=== PATIENT | male | born 1965 | race Caucasian/White ===

== ENCOUNTER 2020-12-25 10:39 | Observation (INO) | payer OTHER ==
[2020-12-25] MEDS ORDERED: solu-MEDROL 125 MG IV ONE (10:42)
[2020-12-25] MEDS ORDERED: DUONEB 0.5-3 MG/3 ml Neb IH ONE ×3 (10:42→15:00)
[2020-12-25] MEDS ORDERED: BABY ASPIRIN 81 MG CHEW PO ONE (10:43)
[2020-12-25] MEDS ORDERED: Sodium Chloride 3 ML UD NEBULES IH ONE (10:43)
[2020-12-25] MEDS ORDERED: Racepinephrine INH Solution 2.25% IH ONE ×3 (10:43→15:04)
[2020-12-25] MEDS ORDERED: BABY ASPIRIN 81 MG CHEW ONE (10:53)
[2020-12-25] MEDS ORDERED: solu-MEDROL 125 MG ONE ×3 (10:53→21:01)
--- NOTE | 2020-12-25 10:58 | ERPHSYRPT ---
- History of Present Illness Time Seen by Provider: 12/25/20 10:42 Source: patient Exam Limitations: no limitations Patient Subjective Stated Complaint: PT states "About 4 am I started to have difficulty breathing. I go out in the cold and it helps but it is in my throat." Triage Nursing Assessment: PTpresented alert and oriented X 3, skin pwd Pt tachypneic, audible wheezes, voice coarse, uable to cough well. Physician History: 55 years old male with history of hypertension, hyperlipidemia presented in the ER with chief complaint of sudden onset shortness of breath around 4 AM this morning with progressive worsening. Patient reports wheezing and stridorous- like throat closing sensation. Reports it seems to have some ease of breathing with going out in the cold air. Generalized chest tightness and also has m inimal productive cough. Denies any tongue swelling but complaining of scratchiness in the throat. Denies any sick contact. No history of CAD. Timing/Duration: today, hour(s) (6), gradual onset, worse Activities at Onset: rest Severity of Dyspnea-Max: moderate Severity of Dyspnea-Current: moderate Possible Cause: no prior episodes Associated Symptoms: cough, chest pain/discomfort, wheezing, No fever, No lightheadedness Allergies/Adverse Reactions: No Known Drug Allergies Allergy (Verified 12/25/20 10:48) Home Medications: Allopurinol 300 mg PO DAILY 12/25/20 [History] Atorvastatin Calcium [Lipitor] 10 mg PO DAILY 12/25/20 [History] Lisinopril 10 mg [Zestril 10 MG] 10 mg PO DAILY 12/25/20 [History] Hx Tetanus, Diphtheria Vaccination/Date Given: No Hx Influenza Vaccination/Date Given: No Hx Pneumococcal Vaccination/Date Given: No Immunizations Up to Date: Yes Travel Risk - International Travel Have you traveled outside of the country in past 3 weeks: No - Coronavirus Screening Are you exhibiting any of the following symptoms?: Yes Symptoms: Shortness of Breath Close contact with a COVID-19 positive Pt in past 14-21 Days: No - Review of Systems Constitutional: No Symptoms Eyes: No Symptoms Ears, Nose, & Throat: Throat Pain, Throat Swelling Respiratory: Cough, Wheezing Cardiac: No Symptoms Abdominal/Gastrointestinal: No Symptoms Genitourinary Symptoms: No Symptoms Musculoskeletal: No Symptoms Skin: No Symptoms Neurological: No Symptoms Psychological: No Symptoms Endocrine: No Symptoms Hematologic/Lymphatic: No Symptoms - Past Medical History Pertinent Past Medical History: Yes Neurological History: No Pertinent History ENT History: No Pertinent History Cardiac History: High Cholesterol, Hypertension Respiratory History: No Pertinent History Endocrine Medical History: No Pertinent History Musculoskeletal History: Other GI Medical History: No Pertinent History History: Renal Disease Psycho-Social History: No Pertinent History Male Reproductive Disorders: No Pertinent History Other Medical History: gout - Past Surgical History Past Surgical History: Yes Other Surgical History: hernia. left lower leg - Social History Smoking Status: Never smoker Exposure to second hand smoke: No Drug Use: none Patient Lives Alone: No - Nursing Vital Signs Nursing Vital Signs: Initial Vital Signs Temperature 98.3 F 12/25/20 10:40 Pulse Rate 108 H 12/25/20 10:40 Respiratory Rate 28 H 12/25/20 10:40 Blood Pressure 145/120 12/25/20 10:40 O2 Sat by Pulse Oximetry 90 L 12/25/20 10:40 Pain Scale Pain Intensity 0 - Physical Exam General Appearance: no apparent distress Eye Exam: PERRL/EOMI Ears, Nose, Throat Exam: hearing grossly normal, pharyngeal erythema Neck Exam: normal inspection, non-tender, supple, full range of motion Respiratory Exam: diminished breath sounds, accessory muscle use, wheezing, stridor, No chest tenderness Cardiovascular/Chest Exam: normal heart sounds, tachycardia Abdominal/Gastrointestinal Exam: soft, normal bowel sounds Extremity Exam: non-tender, normal range of motion Neurologic Exam: alert, oriented x 3, cooperative Skin Exam: normal color SpO2 Interpretation: normal SpO2: 99 O2 Delivery: Room Air - Course EKG Interpreted by Me: RATE (101), Sinus Tach, NORMAL AXIS, NORMAL INTERVALS, NORMAL QRS Ordered Tests: Active Orders 24 hr Category Date Time Status [employer] Education Director STAT Care 12/25/20 10:43 Active EKG-ER Only STAT Care 12/25/20 10:42 Active IV Insertion STAT Care 12/25/20 10:42 Active NPO (ED) STAT Care 12/25/20 10:42 Active Oxygen-ED Only Nasal Cannula 2 lpm Care 12/25/20 10:42 Active CHEST 1 VIEW (PORTABLE) Stat Exams 12/25/20 10:58 Taken CHEST WITH CONTRAST [CT] Stat Exams 12/25/20 12:01 Taken ARTERIAL BLOOD GASES Stat Lab 12/25/20 10:42 Completed BLOOD CULTURE Stat Lab 12/25/20 11:05 Received CBC W DIFF Stat Lab 12/25/20 10:45 Completed CMP Stat Lab 12/25/20 10:45 Completed D-DIMER QUANTITATIVE Stat Lab 12/25/20 10:45 Completed Lactic Acid Stat Lab 12/25/20 10:42 Completed MAGNESIUM Stat Lab 12/25/20 10:45 Completed NT PRO BNP Stat Lab 12/25/20 10:45 Completed TROPONIN Q3H Lab 12/25/20 10:45 Completed TROPONIN Q3H Lab 12/25/20 13:45 Ordered TROPONIN Q3H Lab 12/25/20 16:45 Ordered TROPONIN Q3H Lab 12/25/20 19:45 Ordered TROPONIN Q3H Lab 12/25/20 22:45 Ordered UA W/RFX UR CULTURE Stat Lab 12/25/20 10:42 Ordered Respiratory Therapy Assessment DAILY RT 12/25/20 11:19 Active Transfer Order Routine Transfer 12/25/20 Ordered Medication Summary Generic Name Dose Route Start Last Admin Trade Name Freq PRN Reason Stop Dose Admin Azithromycin 500 mg in 250 mls @ 250 mls/hr 12/25/20 12:26 Zithromax 500 Mg/ 250 Ml Nacl Premix IV 12/25/20 13:25 STAT STA Discontinued Medications Generic Name Dose Route Start Last Admin Trade Name Freq PRN Reason Stop Dose Admin Albuterol/Ipratropium 3 ml 12/25/20 10:42 12/25/20 10:50 Duoneb 0.5-3 Mg/3 Ml Neb IH 12/25/20 10:43 3 ml STAT ONE Administration Albuterol/Ipratropium Confirm 12/25/20 10:43 Duoneb 0.5-3 Mg/3 Ml Neb Administered 12/25/20 10:44 Dose 3 ml IH .STK-MED ONE Aspirin 324 mg 12/25/20 10:43 12/25/20 11:03 Baby Aspirin 81 Mg Chew PO 12/25/20 10:44 324 mg STAT ONE Administration Aspirin Confirm 12/25/20 10:53 Baby Aspirin 81 Mg Chew Administered 12/25/20 10:54 Dose 324 mg .ROUTE .STK-MED ONE Epinephrine 0.5 ml 12/25/20 10:43 12/25/20 10:43 Racepinephrine Inh Solution 2.25% IH 12/25/20 10:44 0.5 ml STAT ONE Administration Epinephrine Confirm 12/25/20 10:43 Racepinephrine Inh Solution 2.25% Administered 12/25/20 10:44 Dose 0.5 ml IH .STK-MED ONE Ceftriaxone Sodium/Dextrose 1 g in 50 mls @ 100 mls/hr 12/25/20 12:26 12/25/20 12:38 Rocephin 1 Gm-D5w 50 Ml Bag IV 12/25/20 12:55 100 ml/hr STAT STA 100 mls/hr Administration Azithromycin Confirm 12/25/20 12:36 Zithromax 500 Mg/ 250 Ml Nacl Premix Administered 12/25/20 12:37 Dose 500 mg in 250 mls @ ud IV .STK-MED ONE Ceftriaxone Sodium/Dextrose Confirm 12/25/20 12:37 Rocephin 1 Gm-D5w 50 Ml Bag Administered 12/25/20 12:38 Dose 1 g in 50 mls @ ud IV .STK-MED ONE Methylprednisolone Sodium Succinate 125 mg 12/25/20 10:42 12/25/20 11:02 Solu-Medrol 125 Mg IV 12/25/20 10:43 125 mg STAT ONE Administration Methylprednisolone Sodium Succinate Confirm 12/25/20 10:53 Solu-Medrol 125 Mg Administered 12/25/20 10:54 Dose 125 mg .ROUTE .STK-MED ONE Methylprednisolone Sodium Succinate Confirm 12/25/20 11:00 Solu-Medrol 125 Mg Administered 12/25/20 11:01 Dose 125 mg .ROUTE .STK-MED ONE Sodium Chloride Confirm 12/25/20 10:43 Sodium Chloride 3 Ml Ud Nebules Administered 12/25/20 10:44 Dose 3 ml IH .STK-MED ONE Lab/Rad Data: Laboratory Result Diagrams 12/25/20 10:45 12/25/20 10:45 Laboratory Results 12/25/20 12/25/20 12/25/20 Range/Units 10:45 10:45 10:45 WBC (4.0-10.5) K/mm3 RBC (4.1-5.6) M/mm3 Hgb (12.5-18.0) gm/dl Hct (42-50) % MCV (78-100) fl MCH (26-32) pg MCHC (32-36) g/dl RDW (11.5-14.0) % Plt Count (150-450) K/mm3 MPV (7.5-11.0) fl Gran % (36.0-66.0) % Eos # (Auto) (0-0.5) Absolute Lymphs (auto) (1.0-4.6) Absolute Monos (auto) (0.0-1.3) Lymphocytes % (24.0-44.0) % Monocytes % (0.0-12.0) % Eosinophils % (0.00-5.0) % Basophils % (0.0-0.4) % Absolute Granulocytes (1.4-6.9) Basophils # (0-0.4) D-Dimer 1141 H* (215-500) ng/mL Puncture Site pCO2 (35-45) mmHg pO2 (75-100) mmHg Base Excess (-2.0-2.0) O2 Saturation (94-100) g/dF ABG pH (7.35-7.45) ABG HCO3 (22-28) ABG O2 Sat (Measured) (95-100) % Hilario Test Hemoglobin Carboxyhemoglobin (0.0-6.9) % THgb Methemoglobin (1.4-1.5) % Potassium 4.7 (3.5-5.1) Temperature C POC O2 Flow Rate % Sodium 141 (137-145) mmol/L Chloride 105 (98-107) mmol/L Carbon Dioxide 25 (22-30) mmol/L Anion Gap 14.8 (5-15) MEQ/L BUN 27 H (9-20) mg/dL Creatinine 1.52 H (0.66-1.25) mg/dL Estimated GFR 50.9 ML/MIN Glucose 108 H (74-106) mg/dL Lactic Acid (0.4-2.0) Calcium 9.1 (8.4-10.2) mg/dL Magnesium 2.3 (1.6-2.3) mg/dL Total Bilirubin 0.70 (0.2-1.3) mg/dL AST 43 (17-59) U/L ALT 41 (0-50) U/L Alkaline Phosphatase 90 (38-126) U/L Troponin I < 0.012 (0.000-0.034) ng/mL NT-Pro-B Natriuret Pep 107 (0-900) pg/mL Serum Total Protein 8.5 H (6.3-8.2) g/dL Albumin 4.8 (3.5-5.0) g/dL 12/25/20 12/25/20 Range/Units 10:45 10:42 WBC 8.3 (4.0-10.5) K/mm3 RBC 4.78 (4.1-5.6) M/mm3 Hgb 13.5 (12.5-18.0) gm/dl Hct 43.2 (42-50) % MCV 90.4 (78-100) fl MCH 28.2 (26-32) pg MCHC 31.3 L (32-36) g/dl RDW 14.6 H (11.5-14.0) % Plt Count 234 (150-450) K/mm3 MPV 11.0 (7.5-11.0) fl Gran % 64.6 (36.0-66.0) % Eos # (Auto) 0.22 (0-0.5) Absolute Lymphs (auto) 1.80 (1.0-4.6) Absolute Monos (auto) 0.89 (0.0-1.3) Lymphocytes % 21.6 L (24.0-44.0) % Monocytes % 10.7 (0.0-12.0) % Eosinophils % 2.6 (0.00-5.0) % Basophils % 0.5 (0.0-0.4) % Absolute Granulocytes 5.39 (1.4-6.9) Basophils # 0.04 (0-0.4) D-Dimer (215-500) ng/mL Puncture Site LEFT BRACHIAL pCO2 45 (35-45) mmHg pO2 99 (75-100) mmHg Base Excess 1.0 (-2.0-2.0) O2 Saturation 91.5 L (94-100) g/dF ABG pH 7.38 (7.35-7.45) ABG HCO3 26.6 (22-28) ABG O2 Sat (Measured) 98.6 (95-100) % Hilario Test YES Hemoglobin 14.3 Carboxyhemoglobin 6.3 (0.0-6.9) % THgb Methemoglobin 0.9 L (1.4-1.5) % Potassium 4.9 (3.5-5.1) Temperature 37.0 C POC O2 Flow Rate 21 % Sodium (137-145) mmol/L Chloride (98-107) mmol/L Carbon Dioxide (22-30) mmol/L Anion Gap (5-15) MEQ/L BUN (9-20) mg/dL Creatinine (0.66-1.25) mg/dL Estimated GFR ML/MIN Glucose (74-106) mg/dL Lactic Acid 1.5 (0.4-2.0) Calcium (8.4-10.2) mg/dL Magnesium (1.6-2.3) mg/dL Total Bilirubin (0.2-1.3) mg/dL AST (17-59) U/L ALT (0-50) U/L Alkaline Phosphatase (38-126) U/L Troponin I (0.000-0.034) ng/mL NT-Pro-B Natriuret Pep (0-900) pg/mL Serum Total Protein (6.3-8.2) g/dL Albumin (3.5-5.0) g/dL - Progress Progress: improved, re-examined Air Movement: fair Progress Note: 12/25/20 13:05 55 years old is evaluated for this of breath since morning with wheezing and stridorous. He is given racemic epi along with steroid on presentation in the ER and later DuoNeb, on reevaluation feeling better. He is placed on 2 L oxygen initially and later increased it to 3 L and has improved work of breathing on reevaluation. Work-up showed normal white count and lactate. EKG showed sinus tach with no acute ST elevation and negative initial troponin. Patient has elevated D-dimer and CTA chest ruled out pulmonary embolism but has bilateral pneumonitis. Started on Rocephin and Zithromax. Discussed with Dr. Hdz and patient is admitted as I believe patient needs frequent neb treatments, IV steroids and antibiotic along with slow weaning off of oxygen. Plan discussed with patient who understand and agrees with it. Blood Culture(s) Obtained: Yes Antibiotics given: Yes Discussed with Dr.: Arianna Will see patient in: hospital (observation) Counseled pt/family regarding: lab results, diagnosis, rad results - Departure Departure Disposition: Observation Clinical Impression: Bilateral pneumonia Qualifiers: Pneumonia type: due to unspecified organism Lung location: unspecified part of lung Qualified Code(s): J18.9 - Pneumonia, unspecified organism Respiratory failure Qualifiers: Chronicity: acute Respiratory failure complication: hypoxia Qualified Code(s): J96.01 - Acute respiratory failure with hypoxia Condition: Stable Critical Care Time: Yes Critical Care Time(excluding separately billable procedures): Critical 30-74 mins Referrals: JUSTYNA NUNEZ [ACTIVE STAFF] -
[2020-12-25 11:06] LABS: ABG HEMOGLOBIN 14.3; ABG POTASSIUM 4.9 (3.5-5.1); ARTERIAL BLD GAS O2 SATURATION 98.6 % (95-100); ARTERIAL BLOOD GAS FIO2 21 %; ARTERIAL BLOOD GAS PCO2 45 mmHg (35-45); ARTERIAL BLOOD GAS PO2 99 mmHg (75-100); ARTERIAL BLOOD GAS pH 7.38 (7.35-7.45); CARBOXYHEMOGLOBIN 6.3 % THgb (0.0-6.9); HCO3- 26.6 (22-28); HGB O2 SAT 91.5 g/dF (94-100); Lactic Acid 1.5 (0.4-2.0); Methhemoglobin 0.9 % (1.4-1.5)
[2020-12-25 11:08] LABS: ABG SITE LEFT BRACHIAL; ALLEN TEST OK? YES
[2020-12-25 11:28] LABS: Absolute Neutrophil Ct (ANC) 5.39 (1.4-6.9); BASOPHIL % 0.5 % (0.0-0.4); Basophil (Absolute #) 0.04 (0-0.4); Eosinophil % 2.6 % (0.00-5.0); Eosinophil (Absolute #) 0.22 (0-0.5); Hematocrit 43.2 % (42-50); Hemoglobin 13.5 gm/dl (12.5-18.0); Lymphocytes % 21.6 % (24.0-44.0); Mean Cell Volume 90.4 fl (78-100); Mean Corpuscular Hemoglobin 28.2 pg (26-32); Mean Corpuscular Hgb Concent. 31.3 g/dl (32-36); Monocyte (Absolute #) 0.89 (0.0-1.3); Monocytes % 10.7 % (0.0-12.0); Neutrophil % 64.6 % (36.0-66.0); Platelet Count 234 K/mm3 (150-450); Red Blood Count 4.78 M/mm3 (4.1-5.6); Red Cell Distribution Width 14.6 % (11.5-14.0); White Blood Count 8.3 K/mm3 (4.0-10.5)
[2020-12-25 11:39] LABS: ALBUMIN 4.8 g/dL (3.5-5.0); ANION GAP 14.8 MEQ/L (5-15); BILIRUBIN,TOTAL 0.7 mg/dL (0.2-1.3); Calcium 9.1 mg/dL (8.4-10.2); Creatinine 1 1.52 mg/dL (0.66-1.25); EST GLOMERULAR FILTRATION RATE 50.9 ML/MIN; MAGNESIUM 2.3 mg/dL (1.6-2.3); Potassium 4.7 mmol/L (3.5-5.1); Total Protein 8.5 g/dL (6.3-8.2)
[2020-12-25] MEDS ORDERED: ROCEPHIN 1 Gm-D5w 50 ml Bag** 1 G/50 ML IVPB IV STA (12:26)
[2020-12-25] MEDS ORDERED: Zithromax 500 MG/ 250 ML NaCl Premix 500 MG/250 ML IVPB IV STA (12:26)
[2020-12-25] MEDS ORDERED: Zithromax 500 MG/ 250 ML NaCl Premix 500 MG/250 ML IVPB IV ONE (12:36)
[2020-12-25] MEDS ORDERED: ROCEPHIN 1 Gm-D5w 50 ml Bag** 1 G/50 ML IVPB IV ONE (12:37)
[2020-12-25 14:23] LABS: INFLUENZA A NEGATIVE (NEGATIVE); INFLUENZA B NEGATIVE (NEGATIVE); RESPIRATORY SYNCTIAL VIRUS NEGATIVE (Negative)
[2020-12-25] MEDS ORDERED: Zofran 4 MG/2 ML VIAL IV PRN (14:47)
[2020-12-25] MEDS ORDERED: TYLENOL 325 MG PO PRN (14:47)
[2020-12-25] MEDS: DUONEB 0.5-3 MG/3 ml Neb IH SCH ×2 (15:10→19:19)
[2020-12-25] MEDS ORDERED: Racepinephrine INH Solution 2.25% IH PRN (15:42)
[2020-12-25] MEDS: solu-MEDROL 125 MG IV SCH (17:18)
[2020-12-25] MEDS ORDERED: solu-MEDROL 125 MG IV SCH (18:00)
--- NOTE | 2020-12-25 18:47 | XRAY ---
Indication: Cough. Short of breath. Elevated d-dimer. Suspect COVID 19. Multiple contiguous axial images obtained through the chest using 80 cc Isovue-370 contrast and PE protocol. Comparison: None There is suboptimal opacification of the pulmonary arteries and minimal respiration artifact limiting evaluation for pulmonary embolus. No obvious central pulmonary embolus. Heart is borderline enlarged. Aorta is normal in course and caliber. No pathologic mediastinal/hilar lymphadenopathy. Bony thorax demonstrates minimal bilateral dependent atelectasis and right upper lobe calcified granuloma. No suspicious pulmonary mass, infiltrate, or effusion. Bony thorax intact with mild degenerative changes throughout the spine. Limited upper abdomen demonstrates fatty liver. Impression: 1. Pulmonary embolus evaluation limited due to suboptimal opacification and respiration artifact. No obvious central pulmonary embolus. 2. Incidental fatty liver and old granulomatous disease. 3. Remaining CT chest with contrast exam is negative. Comment: Preliminary interpretation was made by [facility]. No critical discrepancy.
--- NOTE | 2020-12-25 18:47 | XRAY ---
Indication: Cough and short of breath. Comparison: None Portable apical lordotic chest underinflated and clear with incidental tiny right apical calcified granuloma. Heart is not enlarged. Bony thorax intact with minimal degenerative changes. Impression: Nonacute underinflated chest with chronic features.
[2020-12-25 19:06] LABS: Appearance CLEAR (CLEAR); Bilirubin NEGATIVE (NEGATIVE); Blood NEGATIVE Ery/ul (0-5); Glucose 150 mg/dL (NEGATIVE); Ketones NEGATIVE (NEGATIVE); Leukocyte Esterase NEGATIVE (NEGATIVE); Nitrite NEGATIVE (NEGATIVE); Protein,Urine Dip NEGATIVE (Negative); Specific Gravity 1.034 (1.005-1.025); Urobilinogen NEGATIVE mg/dL (0-1)
[2020-12-25 19:08] LABS: Bacteria NONE SEEN /HPF (NEGATIVE)
[2020-12-25] MEDS ORDERED: Pepcid 20 MG VIAL IV ONE (21:01)
[2020-12-25] MEDS: Pepcid 20 MG VIAL IV SCH (21:11)
[2020-12-25] MEDS ORDERED: Zestril 10 MG PO ONE (22:00)
[2020-12-25] MEDS ORDERED: Zocor 10MG PO ONE (22:00)
[2020-12-25] MEDS ORDERED: COREG 12.5 MG PO ONE (22:00)
[2020-12-26] MEDS: solu-MEDROL 125 MG IV SCH ×2 (00:13→06:16)
[2020-12-26] MEDS: DUONEB 0.5-3 MG/3 ml Neb IH SCH ×2 (00:28→06:35)
[2020-12-26 04:55] LABS: Absolute Neutrophil Ct (ANC) 8.83 (1.4-6.9); BASOPHIL % 0.1 % (0.0-0.4); Basophil (Absolute #) 0.01 (0-0.4); Eosinophil (Absolute #) 0 (0-0.5); Hematocrit 38.5 % (42-50); Hemoglobin 11.9 gm/dl (12.5-18.0); Lymphocyte (Absolute #) 0.75 (1.0-4.6); Lymphocytes % 7.8 % (24.0-44.0); Mean Cell Volume 91.2 fl (78-100); Mean Corpuscular Hemoglobin 28.2 pg (26-32); Mean Corpuscular Hgb Concent. 30.9 g/dl (32-36); Mean Platelet Volume 10.9 fl (7.5-11.0); Monocyte (Absolute #) 0.06 (0.0-1.3); Monocytes % 0.6 % (0.0-12.0); Neutrophil % 91.5 % (36.0-66.0); Platelet Count 226 K/mm3 (150-450); Red Blood Count 4.22 M/mm3 (4.1-5.6); Red Cell Distribution Width 14.4 % (11.5-14.0); White Blood Count 9.7 K/mm3 (4.0-10.5)
[2020-12-26 04:56] LABS: ALBUMIN 4.2 g/dL (3.5-5.0); ANION GAP 13.1 MEQ/L (5-15); BILIRUBIN,TOTAL 0.4 mg/dL (0.2-1.3); Calcium 8.7 mg/dL (8.4-10.2); Creatinine 1 1.64 mg/dL (0.66-1.25); EST GLOMERULAR FILTRATION RATE 46.6 ML/MIN; Potassium 4.9 mmol/L (3.5-5.1); Total Protein 7.3 g/dL (6.3-8.2)
[2020-12-26] MEDS ORDERED: Racepinephrine INH Solution 2.25% IH PRN (07:15)
[2020-12-26 07:21] VITALS: BP 150/82; PULSE 96; O2SAT 94
[2020-12-26] MEDS: Pepcid 20 MG VIAL IV SCH (09:58)
[2020-12-26] MEDS ORDERED: ROCEPHIN 1 Gm-D5w 50 ml Bag** 1 G/50 ML IVPB IV SCH (10:00)
[2020-12-26] MEDS ORDERED: ZYLOPRIM 300 MG PO SCH (10:00)
[2020-12-26] MEDS ORDERED: COREG 12.5 MG PO SCH (10:00)
[2020-12-26] MEDS ORDERED: NON-FORMULARY ITEM (Carvedilol [Coreg] 25 MG) PO SCH (10:00)
[2020-12-26] MEDS ORDERED: Zithromax 500 MG/ 250 ML NaCl Premix 500 MG/250 ML IVPB IV SCH (10:00)
--- NOTE | 2020-12-26 11:29 | SSS ---
DISCHARGE DIAGNOSIS: CROUP. 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 The patient reports that it did get better when he went out in the cool night air but he decided to come to the emergency room where he was found to have stridor with respirations. He was given racemic epinephrine and did improve. He was admitted for observation and further management. PAST MEDICAL/SURGICAL HISTORY: Otherwise significant for hypertension and hyperlipidemia. He apparently sees Dr. Davison in [place] for his care and Dr. Mayco Manzanares for gout problem. The patient's past medical history is otherwise unremarkable. HOME MEDICATIONS: Allopurinol 300 mg a day, atorvastatin 10 mg a day, lisinopril 10 mg a day. ALLERGIES: NKDA. PHYSICAL EXAMINATION: His vital signs on admission showed his temperature to be 98.3F, pulse 108, respiratory rate 28 and blood pressure 145/120. O2 saturation was 90% initially. HEENT: Currently normocephalic, atraumatic. Pupils equal round reactive to light. Extraocular movements are intact. Oropharynx is somewhat dry. He is wearing oxygen per nasal cannula presently. NECK: Supple without lymphadenopathy, thyromegaly or JVD. CHEST: Essentially clear to auscultation. HEART: Regular rate and rhythm, slightly tachycardic. ABDOMEN: Soft. No palpable masses. EXTREMITIES: Without cyanosis, clubbing or edema. NEUROLOGIC: The patient is alert and oriented x3. No focal deficits were noted. LAB DATA AND TESTS: The patient did have laboratory studies in the emergency room that revealed his troponin to be less than 0.012. His glucose 108, BUN 27, creatinine 1.52. Liver enzymes are normal. Electrolytes were normal. ProBNP is normal. He had second troponin less than 0.012. His white count was 8.3, hemoglobin 13.5, PLT count 234,000. His pH 7.38, pCO2 of 45, pO2 of 99. His lactic acid was normal at 1.5. The D-dimer was elevated at 1141. His COVID test, influenza A/B and RSV were all negative. His UA was essentially normal other than slight glucose. He had CT of the chest due to elevated D-dimer which revealed limited evaluation suboptimal opacification, respiration artifact but no central pulmonary embolus was seen, incidental fatty liver, remaining CT of the chest was essentially negative. HOSPITAL COURSE: The patient was given Rocephin and Zithromax in the emergency room, racemic epinephrine, DuoNeb and Solu-Medrol. The patient was feeling much better by the next morning and felt to be ready for discharge home again. He was given prescription for Prednisone 10 mg tablet to take 30 mg for 3 days, 20 mg for 3 days and 10 mg for 3 days. He was given a prescription for Zithromax to finish out that treatment. He was also given an appointment to see us in the office for follow up this coming Saturday. He has been instructed to come back to the hospital if he had any further problems with shortness of breath issues that cannot be controlled with his medications.
[2020-12-26] MEDS ORDERED: Zestril 10 MG PO SCH (22:00)
[2020-12-26] MEDS ORDERED: Zocor 10MG PO SCH (22:00)
[2020-12-26] MEDS ORDERED: NON-FORMULARY ITEM (Atorvastatin Calcium [Lipitor] 10 MG) PO SCH (22:00)
== END 2020-12-26 10:28 | disposition home or self-care (01) ==
LOC: ED 10:39 → MED SURG 14:45
PROVIDERS: ADMIT Family Medicine; ATTEND Family Medicine
DX: J05.0 Acute obstructive laryngitis [croup] (principal); R06.02 Shortness of breath; I10 Essential (primary) hypertension; E78.5 Hyperlipidemia, unspecified; Z79.899 Other long term (current) drug therapy; E78.00 Pure hypercholesterolemia, unspecified
CPT/HCPCS: 0241U; 36000; 36415; 36600; 71045; 71260; 80053; 81001; 82375; 82803; 83605; 83735; 83880; 84484; 85025; 85379; 87040; 93005; 93041; 94640; 94762; 96365; 96374; 99291; G0378; 94760; 99285; J0456; J0696; J2930; A9270-GY

== ENCOUNTER 2021-05-28 16:04 | Observation (INO) | payer OTHER ==
[2021-05-28] MEDS ORDERED: Zofran 4 MG/2 ML VIAL IV ONE (16:32)
[2021-05-28] MEDS ORDERED: Sodium Chloride 0.9% 1000 ML 1,000 ML IV STA (16:32)
[2021-05-28] MEDS ORDERED: Zofran 4 MG/2 ML VIAL ONE (16:34)
[2021-05-28] MEDS ORDERED: Sodium Chloride 0.9% 1000 ML 1,000 ML ONE (16:34)
--- NOTE | 2021-05-28 16:40 | ERPHSYRPT ---
- History of Present Illness Time Seen by Provider: 05/28/21 16:05 Source: patient Exam Limitations: no limitations Patient Subjective Stated Complaint: Patient states he has been having covis s/s x 1 week, body aches, chills, shortness of breath, cough, vomiting and diarrhea. Triage Nursing Assessment: Patient t ED with complaints of covid symptoms x 1 week. States he has hx of renal failure and thinks kidneys are also shutting down. Skin pink warm and dry, 95% room air. slight wheezes and coarse breath sounds heard throughout. Physician History: 55 years old male with a history of hypertension, hyperlipidemia presented in the ER with 1 week history of flulike symptoms. Patient report initially started with minimal productive cough with chest tightness with generalized body aches chills, fatigue and tiredness. The last couple of days he is having multiple episodes of loose watery stool and feels weak and dehydrated. Worried about having GENE as patient does have's history of renal failure in the past wi th similar symptoms. Does have positive sick contact with COVID-19 and did not receive vaccination. Timing/Duration: week(s) (1), gradual onset, worse Cough Quality/Degree: moderate, productive cough, sputum Possible Cause: illness exposure Modifying Factors: Worsens With: coughing Associated Symptoms: chills, chest pain/soreness, cough, headache, lightheadedness, muscle aches, nasal congestion, No fever Allergies/Adverse Reactions: No Known Drug Allergies Allergy (Verified 05/28/21 16:20) Home Medications: Allopurinol 300 mg PO DAILY 12/25/20 [History] Atorvastatin Calcium [Lipitor] 10 mg PO HS 12/25/20 [History] Lisinopril 10 mg [Zestril 10 MG] 10 mg PO HS 12/25/20 [History] Hx Tetanus, Diphtheria Vaccination/Date Given: Yes Hx Influenza Vaccination/Date Given: No Hx Pneumococcal Vaccination/Date Given: No Immunizations Up to Date: Yes Travel Risk - International Travel Have you traveled outside of the country in past 3 weeks: No - Coronavirus Screening Are you exhibiting any of the following symptoms?: Yes Symptoms: Fever, Cough: New Onset, Shortness of Breath, Vomiting/Diarrhea, Loss of Taste or Smell, Headaches/Body Aches/Fatigue Close contact with a COVID-19 positive Pt in past 14-21 Days: Yes - Vaccine Status Have you recieved a Covid-19 vaccination: No - Review of Systems Constitutional: Chills, Fatigue, Weakness Eyes: No Symptoms Ears, Nose, & Throat: Nose Congestion Respiratory: Cough, Dyspnea, Wheezing Abdominal/Gastrointestinal: Diarrhea, No Abdominal Pain Genitourinary Symptoms: No Symptoms Musculoskeletal: Myalgias Skin: No Symptoms Neurological: Headache Psychological: No Symptoms Endocrine: No Symptoms Hematologic/Lymphatic: No Symptoms Immunological/Allergic: No Symptoms - Past Medical History Pertinent Past Medical History: Yes Neurological History: No Pertinent History ENT History: No Pertinent History Cardiac History: High Cholesterol, Hypertension Respiratory History: No Pertinent History Endocrine Medical History: No Pertinent History Musculoskeletal History: Other GI Medical History: No Pertinent History History: Renal Disease Psycho-Social History: No Pertinent History Male Reproductive Disorders: No Pertinent History Other Medical History: gout - Past Surgical History Past Surgical History: Yes Other Surgical History: hernia. left lower leg - Social History Smoking Status: Never smoker Exposure to second hand smoke: No Drug Use: none Patient Lives Alone: No - Nursing Vital Signs Nursing Vital Signs: Initial Vital Signs Temperature 98.9 F 05/28/21 16:10 Pulse Rate 105 H 05/28/21 16:10 Respiratory Rate 16 05/28/21 16:10 Blood Pressure 180/113 05/28/21 16:10 O2 Sat by Pulse Oximetry 97 05/28/21 16:10 Pain Scale Pain Intensity 0 - Physical Exam General Appearance: no apparent distress, alert Eye Exam: PERRL/EOMI, eyes nml inspection Ears, Nose, Throat Exam: normal ENT inspection, pharyngeal erythema Neck Exam: normal inspection, non-tender, supple, full range of motion Respiratory Exam: normal breath sounds, lungs clear Cardiovascular Exam: regular rate/rhythm, normal heart sounds Gastrointestinal/Abdomen Exam: soft, normal bowel sounds, No tenderness Back Exam: normal inspection, normal range of motion Extremity Exam: normal inspection, normal range of motion Neurologic Exam: alert, oriented x 3, cooperative, scalper operator II-XII nml as tested Skin Exam: normal color SpO2 Interpretation: normal SpO2: 97 O2 Delivery: Room Air - Course EKG Interpreted by Me: RATE (100), Sinus Rhythm, NORMAL AXIS, NORMAL INTERVALS, Non-specific ST Changes Ordered Tests: Active Orders 24 hr Category Date Time Status IV Insertion STAT Care 05/28/21 16:32 Active NPO (ED) STAT Care 05/28/21 16:32 Active CHEST 1 VIEW (PORTABLE) Stat Exams 05/28/21 16:59 Taken BLOOD CULTURE Stat Lab 05/28/21 17:15 Received BMP Stat Lab 05/28/21 16:36 Completed CBC W DIFF Stat Lab 05/28/21 16:36 Completed LIPASE Stat Lab 05/28/21 16:36 Completed Lactic Acid Stat Lab 05/28/21 16:32 Completed MAG [MAGNESIUM] Stat Lab 05/28/21 16:36 Completed UA W/RFX UR CULTURE Stat Lab 05/28/21 17:41 Ordered Medication Summary Discontinued Medications Generic Name Dose Route Start Last Admin Trade Name Freq PRN Reason Stop Dose Admin Sodium Chloride 1,000 mls @ 999 mls/hr 05/28/21 16:32 05/28/21 17:37 Sodium Chloride 0.9% 1000 Ml IV 05/28/21 17:32 Infused .Q1H1M STA Infusion Sodium Chloride Confirm 05/28/21 16:34 Sodium Chloride 0.9% 1000 Ml Administered 05/28/21 16:35 Dose 1,000 mls @ ud .ROUTE .STK-MED ONE Ondansetron HCl 4 mg 05/28/21 16:32 05/28/21 16:37 Zofran 4 Mg/2 Ml Vial IV 05/28/21 16:33 4 mg STAT ONE Administration Ondansetron HCl Confirm 05/28/21 16:34 Zofran 4 Mg/2 Ml Vial Administered 05/28/21 16:35 Dose 4 mg .ROUTE .STK-MED ONE Lab/Rad Data: Laboratory Result Diagrams 05/28/21 16:36 05/28/21 16:36 Laboratory Results 05/28/21 05/28/21 05/28/21 Range/Units 16:36 16:36 16:36 WBC (4.0-10.5) K/mm3 RBC (4.1-5.6) M/mm3 Hgb (12.5-18.0) gm/dl Hct (42-50) % MCV (78-100) fl MCH (26-32) pg MCHC (32-36) g/dl RDW (11.5-14.0) % Plt Count (150-450) K/mm3 MPV (7.5-11.0) fl Gran % (36.0-66.0) % Eos # (Auto) (0-0.5) Absolute Lymphs (auto) (1.0-4.6) Absolute Monos (auto) (0.0-1.3) Lymphocytes % (24.0-44.0) % Monocytes % (0.0-12.0) % Eosinophils % (0.00-5.0) % Basophils % (0.0-0.4) % Absolute Granulocytes (1.4-6.9) Basophils # (0-0.4) Sodium 135 L (137-145) mmol/L Potassium 4.9 (3.5-5.1) mmol/L Chloride 99 (98-107) mmol/L Carbon Dioxide 22 (22-30) mmol/L Anion Gap 18.6 H (5-15) MEQ/L BUN 28 H (9-20) mg/dL Creatinine 1.90 H (0.66-1.25) mg/dL Estimated GFR 39.3 ML/MIN Glucose 107 H (74-106) mg/dL Lactic Acid (0.4-2.0) Calcium 8.7 (8.4-10.2) mg/dL Magnesium 1.9 (1.6-2.3) mg/dL Lipase 96 (23-300) U/L SARS-CoV-2 (PCR) POSITIVE A (NEGATIVE) 05/28/21 05/28/21 Range/Units 16:36 16:32 WBC 5.7 (4.0-10.5) K/mm3 RBC 5.34 (4.1-5.6) M/mm3 Hgb 14.8 (12.5-18.0) gm/dl Hct 46.2 (42-50) % MCV 86.5 (78-100) fl MCH 27.7 (26-32) pg MCHC 32.0 (32-36) g/dl RDW 14.7 H (11.5-14.0) % Plt Count 161 (150-450) K/mm3 MPV 11.2 H (7.5-11.0) fl Gran % 73.4 H (36.0-66.0) % Eos # (Auto) 0.01 (0-0.5) Absolute Lymphs (auto) 0.95 L (1.0-4.6) Absolute Monos (auto) 0.55 (0.0-1.3) Lymphocytes % 16.6 L (24.0-44.0) % Monocytes % 9.6 (0.0-12.0) % Eosinophils % 0.2 (0.00-5.0) % Basophils % 0.2 (0.0-0.4) % Absolute Granulocytes 4.19 (1.4-6.9) Basophils # 0.01 (0-0.4) Sodium (137-145) mmol/L Potassium (3.5-5.1) mmol/L Chloride (98-107) mmol/L Carbon Dioxide (22-30) mmol/L Anion Gap (5-15) MEQ/L BUN (9-20) mg/dL Creatinine (0.66-1.25) mg/dL Estimated GFR ML/MIN Glucose (74-106) mg/dL Lactic Acid 1.3 (0.4-2.0) Calcium (8.4-10.2) mg/dL Magnesium (1.6-2.3) mg/dL Lipase (23-300) U/L SARS-CoV-2 (PCR) (NEGATIVE) - Progress Progress: improved Air Movement: fair Progress Note: 05/28/21 18:17 55 years old is evaluated for flulike symptoms with worsening diarrhea. Given fluid bolus, work-up showed normal white count, acute on chronic renal failure with a baseline creatinine around 1.4 and today 1.9 and elevated gap of 18. Chest x-ray negative for any acute pneumonic infiltrative process reviewed by me, official report is pending. Patient Covid 19 is positive. With his worsening diarrhea which started 2 days ago and his Covid symptoms going on for 10 days I believe patient would benefit with IV hydration and monitoring, discussed with and patient is accepted for admission Antibiotics given: No Discussed with : Jaun Will see patient in: hospital (observation) Counseled pt/family regarding: lab results, diagnosis, rad results - Departure Departure Disposition: Observation Clinical Impression: Dehydration, COVID-19 Renal failure Qualifiers: Renal failure chronicity: acute Acute renal failure type: unspecified Qualified Code(s): N17.9 - Acute kidney failure, unspecified Condition: Stable Critical Care Time: No Referrals: CANDE BARBOSA [Primary Care Provider] -
[2021-05-28 16:43] LABS: Absolute Neutrophil Ct (ANC) 4.19 (1.4-6.9); BASOPHIL % 0.2 % (0.0-0.4); Basophil (Absolute #) 0.01 (0-0.4); Eosinophil % 0.2 % (0.00-5.0); Eosinophil (Absolute #) 0.01 (0-0.5); Hematocrit 46.2 % (42-50); Hemoglobin 14.8 gm/dl (12.5-18.0); Lymphocyte (Absolute #) 0.95 (1.0-4.6); Lymphocytes % 16.6 % (24.0-44.0); Mean Cell Volume 86.5 fl (78-100); Mean Corpuscular Hemoglobin 27.7 pg (26-32); Mean Platelet Volume 11.2 fl (7.5-11.0); Monocyte (Absolute #) 0.55 (0.0-1.3); Monocytes % 9.6 % (0.0-12.0); Neutrophil % 73.4 % (36.0-66.0); Platelet Count 161 K/mm3 (150-450); Red Blood Count 5.34 M/mm3 (4.1-5.6); Red Cell Distribution Width 14.7 % (11.5-14.0); White Blood Count 5.7 K/mm3 (4.0-10.5)
[2021-05-28 16:50] LABS: ANION GAP 18.6 MEQ/L (5-15); Calcium 8.7 mg/dL (8.4-10.2); Creatinine 1 1.9 mg/dL (0.66-1.25); EST GLOMERULAR FILTRATION RATE 39.3 ML/MIN; Potassium 4.9 mmol/L (3.5-5.1)
[2021-05-28 18:14] LABS: Appearance SLIGHTLY CLOUDY (CLEAR); Bilirubin NEGATIVE (NEGATIVE); Blood SMALL Ery/ul (0-5); Glucose NEGATIVE (NEGATIVE); Ketones TRACE (NEGATIVE); Leukocyte Esterase NEGATIVE (NEGATIVE); Nitrite NEGATIVE (NEGATIVE); Protein,Urine Dip 100 (Negative); Specific Gravity 1.014 (1.005-1.025); Urobilinogen NEGATIVE mg/dL (0-1)
[2021-05-28 18:35] LABS: Bacteria NONE SEEN /HPF (NEGATIVE)
[2021-05-28] MEDS ORDERED: MORPHINE SULFATE 4 MG INJ IV PRN (19:59)
[2021-05-28] MEDS ORDERED: MORPHINE SULFATE 2 MG INJ IV PRN (19:59)
[2021-05-28] MEDS: Sodium Chloride 0.9% 1000 ML 1,000 ML IV SCH (21:28)
[2021-05-28] MEDS: Pepcid 20 MG VIAL IV SCH (21:29)
[2021-05-29] MEDS: TYLENOL 325 MG PO PRN ×3 (03:02→21:17)
[2021-05-29] MEDS ORDERED: Zofran 4 MG/2 ML VIAL IV PRN (03:15)
[2021-05-29 05:41] LABS: Absolute Neutrophil Ct (ANC) 3.36 (1.4-6.9); BASOPHIL % 0.2 % (0.0-0.4); Basophil (Absolute #) 0.01 (0-0.4); Eosinophil (Absolute #) 0 (0-0.5); Hematocrit 42.6 % (42-50); Hemoglobin 13.5 gm/dl (12.5-18.0); Lymphocyte (Absolute #) 0.85 (1.0-4.6); Lymphocytes % 17.9 % (24.0-44.0); Mean Cell Volume 86.9 fl (78-100); Mean Corpuscular Hemoglobin 27.6 pg (26-32); Mean Corpuscular Hgb Concent. 31.7 g/dl (32-36); Mean Platelet Volume 11.3 fl (7.5-11.0); Monocyte (Absolute #) 0.54 (0.0-1.3); Monocytes % 11.3 % (0.0-12.0); Neutrophil % 70.6 % (36.0-66.0); Platelet Count 138 K/mm3 (150-450); Red Cell Distribution Width 14.6 % (11.5-14.0); White Blood Count 4.8 K/mm3 (4.0-10.5)
[2021-05-29 06:26] LABS: ALBUMIN 3.7 g/dL (3.5-5.0); ANION GAP 14.6 MEQ/L (5-15); BILIRUBIN,TOTAL 0.7 mg/dL (0.2-1.3); Calcium 8.1 mg/dL (8.4-10.2); Creatinine 1 1.54 mg/dL (0.66-1.25); EST GLOMERULAR FILTRATION RATE 50.1 ML/MIN; Potassium 4.3 mmol/L (3.5-5.1); Total Protein 7.1 g/dL (6.3-8.2)
[2021-05-29] MEDS: Sodium Chloride 0.9% 1000 ML 1,000 ML IV SCH ×3 (06:27→21:17)
--- NOTE | 2021-05-29 08:58 | XRAY ---
Indication: Fever, cough, and short of breath. Suspect Covid 19. Comparison: December 25, 2020. Portable apical lordotic chest remains clear again with incidental tiny calcified granulomas. Heart not enlarged. Bony thorax intact again with mild degenerative changes. No new/acute findings.
[2021-05-29] MEDS: Zestril 10 MG PO SCH (10:00)
[2021-05-29] MEDS: Pepcid 20 MG VIAL IV SCH ×2 (10:00→21:17)
[2021-05-29] MEDS: ENOXAPARIN SODIUM SQ SCH (10:00)
[2021-05-29] MEDS ORDERED: LIPITOR 40MG PO SCH (10:00)
[2021-05-29] MEDS: ZYLOPRIM 300 MG PO SCH (10:01)
[2021-05-29] MEDS: Zocor 10MG PO SCH (10:01)
--- NOTE | 2021-05-29 13:07 | PCM.HP ---
History of Present Illness - Chief Complaint Chief Complaint: c/o flu like symptoms for 2-3 days History of Present Illness: is a 55 year old male.with a history of hypertension, hyperlipidemia presented in the ER with 1 week history of flulike symptoms. Patient report initially started with minimal productive cough with chest tightness with generalized body aches chills, fatigue and tiredness. The last couple of days he is having multiple episodes of loose watery stool and feels weak and dehydrated. Worried about having GENE as patient does have's history of renal failure in the past with similar symptoms. Does have positive sick contact with COVID-19 and did not receive vaccination. Timing/Duration: week(s) (1), gradual onset, worse Cough Quality/Degree: moderate, productive cough, sputum Possible Cause: illness exposure Modifying Factors: Worsens With: coughing Associated Symptoms: chills, chest pain/soreness, cough, headache, lightheadedne ss, muscle aches, nasal congestion, No fever - Review of Systems Constitutional: Weakness, No Fever, No Chills Eyes: No Symptoms Ears, Nose, & Throat: No Symptoms Respiratory: Cough, Short Of Breath, Wheezing Cardiac: No Chest Pain, No Edema, No Syncope Abdominal/Gastrointestinal: Abdominal Pain, Nausea, Vomiting, Diarrhea Genitourinary Symptoms: No Dysuria Musculoskeletal: No Back Pain, No Neck Pain Skin: No Rash Neurological: No Dizziness, No Focal Weakness, No Sensory Changes Psychological: No Symptoms Endocrine: No Symptoms Hematologic/Lymphatic: No Symptoms Immunological/Allergic: No Symptoms Medications & Allergies Home Medications: Home Medication List Allopurinol 300 mg PO DAILY 12/25/20 [History Confirmed 05/28/21] Atorvastatin Calcium [Lipitor] 10 mg PO DAILY 12/25/20 [History Confirmed 05/28/21] Lisinopril 10 mg [Zestril 10 MG] 10 mg PO DAILY 12/25/20 [History Confirmed 05/28/21] Allergies/Adverse Reactions: Allergies Allergy/AdvReac Type Severity Reaction Status Date / Time No Known Drug Allergies Allergy Verified 05/28/21 16:20 - Past Medical History Past Medical History: Yes Neurological History: No Pertinent History ENT History: No Pertinent History Cardiac History: High Cholesterol, Hypertension Respiratory History: No Pertinent History Endocrine Medical History: No Pertinent History Musculoskelatal History: Other GI Medical History: No Pertinent History History: Renal Disease Pyscho-Social History: No Pertinent History Male Reproductive Disorders: No Pertinent History Comment: gout - Past Surgical History Past Surgical History: Yes Neuro Surgical History: No Pertinent History Cardiac History: No Pertinent History Respiratory Surgery: No Pertinent History GI Surgical History: No Pertinent History Genitourinary Surgical Hx: Other Musculskeletal Surgical Hx: No Pertinent History Male Surgical History: No Pertinent History Other Surgical History: hernia. left lower leg - Social History Smoking Status: Never smoker Exposure to second hand smoke: No Alcohol: None Drug Use: none - Physical Exam Vital Signs: Vital Signs - 24 hr Temp Pulse Resp BP Pulse Ox 05/29/21 12:04 97.5 F 82 18 150/88 96 05/29/21 12:00 24 05/29/21 10:00 20 05/29/21 09:53 86 18 95 05/29/21 08:00 18 05/29/21 07:30 98.6 F 89 18 136/90 93 L 05/29/21 07:18 93 L 05/29/21 06:00 97 F 87 20 157/84 96 05/29/21 03:49 20 05/29/21 03:48 98.2 F 87 20 95 05/29/21 02:00 99.3 F 98 H 18 167/97 95 05/28/21 23:44 18 05/28/21 23:35 99.3 F 101 H 18 150/77 95 05/28/21 22:00 20 05/28/21 20:40 97.0 F 95 H 20 159/92 95 05/28/21 19:51 93 H 20 95 05/28/21 19:00 96 H 20 166/107 95 05/28/21 18:18 97 05/28/21 18:00 100 H 20 164/103 95 05/28/21 17:00 96 H 20 159/105 96 05/28/21 16:10 98.9 F 105 H 29 H 180/113 95 General Appearance: no apparent distress, alert Neurologic Exam: alert, oriented x 3, cooperative, normal mood/affect, nml cerebellar function, nml station & gait, sensation nml, No motor deficits Eye Exam: PERRL/EOMI, eyes nml inspection Ears, Nose, Throat Exam: normal ENT inspection, TMs normal, pharynx normal, moist mucous membranes Neck Exam: normal inspection, non-tender, supple, full range of motion Respiratory Exam: normal breath sounds, lungs clear, No respiratory distress Cardiovascular Exam: regular rate/rhythm, normal heart sounds, normal peripheral pulses Gastrointestinal/Abdomen Exam: soft, normal bowel sounds, No tenderness, No mass Back Exam: normal inspection, normal range of motion, No CVA tenderness, No vertebral tenderness Extremity Exam: normal inspection, normal range of motion, pelvis stable Skin Exam: normal color, warm, dry, No rash Lymphatic Exam: No adenopathy Results - Labs Lab/Micro Results: Lab Results-Last 24 Hours 05/28/21 05/28/21 05/28/21 Range/Units 16:32 16:36 16:36 WBC 5.7 (4.0-10.5) K/mm3 RBC 5.34 (4.1-5.6) M/mm3 Hgb 14.8 (12.5-18.0) gm/dl Hct 46.2 (42-50) % MCV 86.5 (78-100) fl MCH 27.7 (26-32) pg MCHC 32.0 (32-36) g/dl RDW 14.7 H (11.5-14.0) % Plt Count 161 (150-450) K/mm3 MPV 11.2 H (7.5-11.0) fl Gran % 73.4 H (36.0-66.0) % Eos # (Auto) 0.01 (0-0.5) Absolute Lymphs (auto) 0.95 L (1.0-4.6) Absolute Monos (auto) 0.55 (0.0-1.3) Lymphocytes % 16.6 L (24.0-44.0) % Monocytes % 9.6 (0.0-12.0) % Eosinophils % 0.2 (0.00-5.0) % Basophils % 0.2 (0.0-0.4) % Absolute Granulocytes 4.19 (1.4-6.9) Basophils # 0.01 (0-0.4) Sodium 135 L (137-145) mmol/L Potassium 4.9 (3.5-5.1) mmol/L Chloride 99 (98-107) mmol/L Carbon Dioxide 22 (22-30) mmol/L Anion Gap 18.6 H (5-15) MEQ/L BUN 28 H (9-20) mg/dL Creatinine 1.90 H (0.66-1.25) mg/dL Estimated GFR 39.3 ML/MIN Glucose 107 H (74-106) mg/dL Lactic Acid 1.3 (0.4-2.0) Calcium 8.7 (8.4-10.2) mg/dL Magnesium (1.6-2.3) mg/dL Total Bilirubin (0.2-1.3) mg/dL AST (17-59) U/L ALT (0-50) U/L Alkaline Phosphatase (38-126) U/L Serum Total Protein (6.3-8.2) g/dL Albumin (3.5-5.0) g/dL Lipase 96 (23-300) U/L Urine Color (YELLOW) Urine Appearance (CLEAR) Urine pH (5-6) Ur Specific [place] (1.005-1.025) Urine Protein (Negative) Urine Ketones (NEGATIVE) Urine Blood (0-5) Gio/ul Urine Nitrite (NEGATIVE) Urine Bilirubin (NEGATIVE) Urine Urobilinogen (0-1) mg/dL Ur Leukocyte Esterase (NEGATIVE) Urine WBC (Auto) (0-5) /HPF Urine RBC (Auto) (0-2) /HPF U Epithel Cells (Auto) (FEW) /HPF Urine Bacteria (Auto) (NEGATIVE) /HPF Urine Culture Reflexed (NO) Urine Glucose (NEGATIVE) mg/dL SARS-CoV-2 (PCR) (NEGATIVE) 05/28/21 05/28/21 05/28/21 Range/Units 16:36 16:36 17:41 WBC (4.0-10.5) K/mm3 RBC (4.1-5.6) M/mm3 Hgb (12.5-18.0) gm/dl Hct (42-50) % MCV (78-100) fl MCH (26-32) pg MCHC (32-36) g/dl RDW (11.5-14.0) % Plt Count (150-450) K/mm3 MPV (7.5-11.0) fl Gran % (36.0-66.0) % Eos # (Auto) (0-0.5) Absolute Lymphs (auto) (1.0-4.6) Absolute Monos (auto) (0.0-1.3) Lymphocytes % (24.0-44.0) % Monocytes % (0.0-12.0) % Eosinophils % (0.00-5.0) % Basophils % (0.0-0.4) % Absolute Granulocytes (1.4-6.9) Basophils # (0-0.4) Sodium (137-145) mmol/L Potassium (3.5-5.1) mmol/L Chloride (98-107) mmol/L Carbon Dioxide (22-30) mmol/L Anion Gap (5-15) MEQ/L BUN (9-20) mg/dL Creatinine (0.66-1.25) mg/dL Estimated GFR ML/MIN Glucose (74-106) mg/dL Lactic Acid (0.4-2.0) Calcium (8.4-10.2) mg/dL Magnesium 1.9 (1.6-2.3) mg/dL Total Bilirubin (0.2-1.3) mg/dL AST (17-59) U/L ALT (0-50) U/L Alkaline Phosphatase (38-126) U/L Serum Total Protein (6.3-8.2) g/dL Albumin (3.5-5.0) g/dL Lipase (23-300) U/L Urine Color YELLOW (YELLOW) Urine Appearance SLIGHTLY CLOUDY (CLEAR) Urine pH 5.0 (5-6) Ur Specific [place] 1.014 (1.005-1.025) Urine Protein 100 (Negative) Urine Ketones TRACE (NEGATIVE) Urine Blood SMALL (0-5) Gio/ul Urine Nitrite NEGATIVE (NEGATIVE) Urine Bilirubin NEGATIVE (NEGATIVE) Urine Urobilinogen NEGATIVE (0-1) mg/dL Ur Leukocyte Esterase NEGATIVE (NEGATIVE) Urine WBC (Auto) NONE (0-5) /HPF Urine RBC (Auto) NONE (0-2) /HPF U Epithel Cells (Auto) NONE (FEW) /HPF Urine Bacteria (Auto) NONE SEEN (NEGATIVE) /HPF Urine Culture Reflexed YES (NO) Urine Glucose NEGATIVE (NEGATIVE) mg/dL SARS-CoV-2 (PCR) POSITIVE A (NEGATIVE) 05/29/21 05/29/21 Range/Units 05:00 05:00 WBC 4.8 (4.0-10.5) K/mm3 RBC 4.90 (4.1-5.6) M/mm3 Hgb 13.5 (12.5-18.0) gm/dl Hct 42.6 (42-50) % MCV 86.9 (78-100) fl MCH 27.6 (26-32) pg MCHC 31.7 L (32-36) g/dl RDW 14.6 H (11.5-14.0) % Plt Count 138 L (150-450) K/mm3 MPV 11.3 H (7.5-11.0) fl Gran % 70.6 H (36.0-66.0) % Eos # (Auto) 0 (0-0.5) Absolute Lymphs (auto) 0.85 L (1.0-4.6) Absolute Monos (auto) 0.54 (0.0-1.3) Lymphocytes % 17.9 L (24.0-44.0) % Monocytes % 11.3 (0.0-12.0) % Eosinophils % 0.0 (0.00-5.0) % Basophils % 0.2 (0.0-0.4) % Absolute Granulocytes 3.36 (1.4-6.9) Basophils # 0.01 (0-0.4) Sodium 135 L (137-145) mmol/L Potassium 4.3 (3.5-5.1) mmol/L Chloride 105 (98-107) mmol/L Carbon Dioxide 20 L (22-30) mmol/L Anion Gap 14.6 (5-15) MEQ/L BUN 25 H (9-20) mg/dL Creatinine 1.54 H (0.66-1.25) mg/dL Estimated GFR 50.1 ML/MIN Glucose 105 (74-106) mg/dL Lactic Acid (0.4-2.0) Calcium 8.1 L (8.4-10.2) mg/dL Magnesium (1.6-2.3) mg/dL Total Bilirubin 0.70 (0.2-1.3) mg/dL AST 37 (17-59) U/L ALT 15 (0-50) U/L Alkaline Phosphatase 76 (38-126) U/L Serum Total Protein 7.1 (6.3-8.2) g/dL Albumin 3.7 (3.5-5.0) g/dL Lipase (23-300) U/L Urine Color (YELLOW) Urine Appearance (CLEAR) Urine pH (5-6) Ur Specific [place] (1.005-1.025) Urine Protein (Negative) Urine Ketones (NEGATIVE) Urine Blood (0-5) Gio/ul Urine Nitrite (NEGATIVE) Urine Bilirubin (NEGATIVE) Urine Urobilinogen (0-1) mg/dL Ur Leukocyte Esterase (NEGATIVE) Urine WBC (Auto) (0-5) /HPF Urine RBC (Auto) (0-2) /HPF U Epithel Cells (Auto) (FEW) /HPF Urine Bacteria (Auto) (NEGATIVE) /HPF Urine Culture Reflexed (NO) Urine Glucose (NEGATIVE) mg/dL SARS-CoV-2 (PCR) (NEGATIVE) Microbiology 05/28/21 17:41 Urine Culture - Preliminary Urine, Void NO GROWTH TO DATE - Radiology Impressions Radiology Exams & Impressions: Radiology Procedures Category Date Time Status CHEST 1 VIEW (PORTABLE) Stat Exams 05/28/21 16:59 Completed - Other Procedures and Tests Respiratory Therapy 05/28/21 22:00 Oxygen NASAL CANNULA 2 lpm Assessment/Plan (1) Dehydration Current Visit: Yes Status: Acute Assessment & Plan: Chief Complaint Diagnosis covid/acute renal failure Allergies Allergy/AdvReac Type Severity Reaction Status Date / Time No Known Drug Allergies Allergy Verified 05/28/21 16:20 Vital Signs (Last 24 hours) Temp Pulse Resp BP Pulse Ox 05/29/21 12:04 97.5 F 82 18 150/88 96 05/29/21 12:00 24 05/29/21 10:00 20 05/29/21 09:53 86 18 95 05/29/21 08:00 18 05/29/21 07:30 98.6 F 89 18 136/90 93 L 05/29/21 07:18 93 L 05/29/21 06:00 97 F 87 20 157/84 96 05/29/21 03:49 20 05/29/21 03:48 98.2 F 87 20 95 05/29/21 02:00 99.3 F 98 H 18 167/97 95 05/28/21 23:44 18 05/28/21 23:35 99.3 F 101 H 18 150/77 95 05/28/21 22:00 20 05/28/21 20:40 97.0 F 95 H 20 159/92 95 05/28/21 19:51 93 H 20 95 05/28/21 19:00 96 H 20 166/107 95 05/28/21 18:18 97 05/28/21 18:00 100 H 20 164/103 95 05/28/21 17:00 96 H 20 159/105 96 05/28/21 16:10 98.9 F 105 H 29 H 180/113 95 Current Medications Generic Name Dose Route Start Last Admin Trade Name Freq PRN Reason Stop Dose Admin Acetaminophen 650 mg 05/28/21 19:59 05/29/21 03:02 Tylenol 325 Mg PO 06/27/21 19:58 650 mg Q4H PRN PRN Administration PAIN AND/OR FEVER Allopurinol 300 mg 05/29/21 10:00 05/29/21 10:01 Zyloprim 300 Mg PO 06/28/21 09:59 300 mg DAILY MICHAEL Administration Enoxaparin Sodium 40 mg 05/29/21 10:00 05/29/21 10:00 Enoxaparin Sodium SQ 06/28/21 09:59 40 mg DAILY MICHAEL Administration Famotidine 20 mg 05/28/21 22:00 05/29/21 10:00 Pepcid 20 Mg Vial IV 06/27/21 21:59 20 mg Q12HT MICHAEL Administration Sodium Chloride 1,000 mls @ 125 mls/hr 05/28/21 19:59 05/29/21 06:27 Sodium Chloride 0.9% 1000 Ml IV 06/27/21 19:58 125 mls/hr .Q8H MICHAEL Administration Lisinopril 10 mg 05/29/21 10:00 05/29/21 10:00 Zestril 10 Mg PO 06/28/21 09:59 10 mg DAILY MICHAEL Administration Morphine Sulfate 2 mg 05/28/21 19:59 05/29/21 03:03 Morphine Sulfate 2 Mg Inj IV 06/02/21 19:58 2 mg Q4H PRN PRN Administration PAIN Morphine Sulfate 4 mg 05/28/21 19:59 Morphine Sulfate 4 Mg Inj IV 06/02/21 19:58 Q4H PRN PRN PAIN Ondansetron HCl 4 mg 05/29/21 03:15 05/29/21 03:17 Zofran 4 Mg/2 Ml Vial IV 06/28/21 03:14 4 mg Q4H PRN PRN Administration NAUSEA/VOMITING Simvastatin 10 mg 05/29/21 10:00 05/29/21 10:01 Zocor 10mg PO 06/28/21 09:59 10 mg DAILY MICHAEL Administration Discontinued Medications Generic Name Dose Route Start Last Admin Trade Name Freq PRN Reason Stop Dose Admin Sodium Chloride 1,000 mls @ 999 mls/hr 05/28/21 16:32 05/28/21 17:37 Sodium Chloride 0.9% 1000 Ml IV 05/28/21 17:32 Infused .Q1H1M STA Infusion Sodium Chloride Confirm 05/28/21 16:34 Sodium Chloride 0.9% 1000 Ml Administered 05/28/21 16:35 Dose 1,000 mls @ ud .ROUTE .STK-MED ONE Ondansetron HCl 4 mg 05/28/21 16:32 05/28/21 16:37 Zofran 4 Mg/2 Ml Vial IV 05/28/21 16:33 4 mg STAT ONE Administration Ondansetron HCl Confirm 05/28/21 16:34 Zofran 4 Mg/2 Ml Vial Administered 05/28/21 16:35 Dose 4 mg .ROUTE .STK-MED ONE Intake & Output (Last 24 hours) 05/27/21 05/28/21 05/29/21 05/30/21 11:59 11:59 11:59 11:59 Intake Total 2320 Balance 2320 Weight 82.5 kg Microbiology Results (Last 24 hours) 05/28/21 17:41 Urine, Void Urine Culture - Preliminary NO GROWTH TO DATE 05/28/21 17:15 Blood Blood Culture Gram Stain - Pending 05/28/21 17:15 Blood Blood Culture - Pending 05/28/21 16:36 Blood Blood Culture Gram Stain - Pending 05/28/21 16:36 Blood Blood Culture - Pending Laboratory Results (Last 24 hours) 05/29/21 05/29/21 05/28/21 05:00 05:00 17:41 WBC 4.8 RBC 4.90 Hgb 13.5 Hct 42.6 MCV 86.9 MCH 27.6 MCHC 31.7 L RDW 14.6 H Plt Count 138 L MPV 11.3 H Gran % 70.6 H Eos # (Auto) 0 Absolute Lymphs (auto) 0.85 L Absolute Monos (auto) 0.54 Lymphocytes % 17.9 L Monocytes % 11.3 Eosinophils % 0.0 Basophils % 0.2 Absolute Granulocytes 3.36 Basophils # 0.01 Sodium 135 L Potassium 4.3 Chloride 105 Carbon Dioxide 20 L Anion Gap 14.6 BUN 25 H Creatinine 1.54 H Estimated GFR 50.1 Glucose 105 Lactic Acid Calcium 8.1 L Magnesium Total Bilirubin 0.70 AST 37 ALT 15 Alkaline Phosphatase 76 Serum Total Protein 7.1 Albumin 3.7 Lipase Urine Color YELLOW Urine Appearance SLIGHTLY CLOUDY Urine pH 5.0 Ur Specific [place] 1.014 Urine Protein 100 Urine Ketones TRACE Urine Blood SMALL Urine Nitrite NEGATIVE Urine Bilirubin NEGATIVE Urine Urobilinogen NEGATIVE Ur Leukocyte Esterase NEGATIVE Urine WBC (Auto) NONE Urine RBC (Auto) NONE U Epithel Cells (Auto) NONE Urine Bacteria (Auto) NONE SEEN Urine Culture Reflexed YES Urine Glucose NEGATIVE SARS-CoV-2 (PCR) 05/28/21 05/28/21 05/28/21 16:36 16:36 16:36 WBC RBC Hgb Hct MCV MCH MCHC RDW Plt Count MPV Gran % Eos # (Auto) Absolute Lymphs (auto) Absolute Monos (auto) Lymphocytes % Monocytes % Eosinophils % Basophils % Absolute Granulocytes Basophils # Sodium 135 L Potassium 4.9 Chloride 99 Carbon Dioxide 22 Anion Gap 18.6 H BUN 28 H Creatinine 1.90 H Estimated GFR 39.3 Glucose 107 H Lactic Acid Calcium 8.7 Magnesium 1.9 Total Bilirubin AST ALT Alkaline Phosphatase Serum Total Protein Albumin Lipase 96 Urine Color Urine Appearance Urine pH Ur Specific [place] Urine Protein Urine Ketones Urine Blood Urine Nitrite Urine Bilirubin Urine Urobilinogen Ur Leukocyte Esterase Urine WBC (Auto) Urine RBC (Auto) U Epithel Cells (Auto) Urine Bacteria (Auto) Urine Culture Reflexed Urine Glucose SARS-CoV-2 (PCR) POSITIVE A 05/28/21 05/28/21 16:36 16:32 WBC 5.7 RBC 5.34 Hgb 14.8 Hct 46.2 MCV 86.5 MCH 27.7 MCHC 32.0 RDW 14.7 H Plt Count 161 MPV 11.2 H Gran % 73.4 H Eos # (Auto) 0.01 Absolute Lymphs (auto) 0.95 L Absolute Monos (auto) 0.55 Lymphocytes % 16.6 L Monocytes % 9.6 Eosinophils % 0.2 Basophils % 0.2 Absolute Granulocytes 4.19 Basophils # 0.01 Sodium Potassium Chloride Carbon Dioxide Anion Gap BUN Creatinine Estimated GFR Glucose Lactic Acid 1.3 Calcium Magnesium Total Bilirubin AST ALT Alkaline Phosphatase Serum Total Protein Albumin Lipase Urine Color Urine Appearance Urine pH Ur Specific [place] Urine Protein Urine Ketones Urine Blood Urine Nitrite Urine Bilirubin Urine Urobilinogen Ur Leukocyte Esterase Urine WBC (Auto) Urine RBC (Auto) U Epithel Cells (Auto) Urine Bacteria (Auto) Urine Culture Reflexed Urine Glucose SARS-CoV-2 (PCR) Orders (Last 24 hours) Category Date Time Status Bedrest with BRP/BSC ROUTINE Activity 05/28/21 19:59 Active Up With Assistance ROUTINE Activity 05/28/21 19:59 Active Code Status Order ROUTINE Care 05/28/21 19:59 Active Fall Protocol Q1H Care 05/28/21 19:59 Active IV Care Q6H Care 05/28/21 19:59 Active IV Insertion STAT Care 05/28/21 16:32 Completed NPO (ED) STAT Care 05/28/21 16:[address] in Observation ROUTINE Care 05/28/21 19:59 Active Taurus Joao, Apply ROUTINE Care 05/28/21 19:59 Active Weight,Daily 0600 Care 05/28/21 19:59 Active CHEST 1 VIEW (PORTABLE) Stat Exams 05/28/21 16:59 Completed BLOOD CULTURE Stat Lab 05/28/21 17:15 Received BMP Stat Lab 05/28/21 16:36 Completed CBC W DIFF AM.LAB Lab 05/29/21 05:00 Completed CBC W DIFF AM.LAB Lab 05/30/21 04:00 Ordered CBC W DIFF Stat Lab 05/28/21 16:36 Completed CMP AM.LAB Lab 05/29/21 05:00 Completed CMP AM.LAB Lab 05/30/21 04:00 Ordered CULTURE,URINE Stat Lab 05/28/21 17:41 Results LIPASE Stat Lab 05/28/21 16:36 Completed Lactic Acid Stat Lab 05/28/21 16:32 Completed MAG [MAGNESIUM] Stat Lab 05/28/21 16:36 Completed SARS-CoV-2 Xpert Express Stat Lab 05/28/21 16:36 Completed UA W/RFX UR CULTURE Stat Lab 05/28/21 17:41 Completed Acetaminophen 325 mg [Tylenol 325 mg] Med 05/28/21 19:59 Active 650 mg PO Q4H PRN PRN Allopurinol 300 mg [Zyloprim 300 mg] Med 05/29/21 10:00 Active 300 mg PO DAILY Enoxaparin Sodium [Enoxaparin Sodium] Med 05/29/21 10:00 Active 40 mg SQ DAILY Famotidine 20 mg Vial [Pepcid 20 MG VIAL] Med 05/28/21 22:00 Active 20 mg IV Q12HT Lisinopril 10 mg [Zestril 10 MG] Med 05/29/21 10:00 Active 10 mg PO DAILY Morphine Sulfate 2 mg Inj Med 05/28/21 19:59 Active 2 mg IV Q4H PRN PRN Morphine Sulfate 4 mg Inj Med 05/28/21 19:59 Active 4 mg IV Q4H PRN PRN NaCl 0.9% 1000 ml [Sodium Chloride 0.9% 1000 ML] 1,000 Med 05/28/21 16:34 Discontinued ml .ROUTE UD NaCl 0.9% 1000 ml [Sodium Chloride 0.9% 1000 ML] 1,000 Med 05/28/21 19:59 Active ml IV 125 mls/hr NaCl 0.9% 1000 ml [Sodium Chloride 0.9% 1000 ML] 1,000 Med 05/28/21 16:32 Discontinued ml IV 999 mls/hr Ondansetron HCl 4 mg/2 ml [Zofran 4 MG/2 ML VIAL] Med 05/28/21 16:34 Discontinued 4 mg .ROUTE .STK-MED ONE Ondansetron HCl 4 mg/2 ml [Zofran 4 MG/2 ML VIAL] Med 05/29/21 03:15 Active 4 mg IV Q4H PRN PRN Ondansetron HCl 4 mg/2 ml [Zofran 4 MG/2 ML VIAL] Med 05/28/21 16:32 Discontinued 4 mg IV STAT ONE Simvastatin 10 mg [Zocor 10MG] Med 05/29/21 10:00 Active 10 mg PO DAILY Oxygen NASAL CANNULA 2 lpm RT 05/28/21 22:00 Active Pulse Oximetry .continuos RT 05/28/21 22:00 Active Respiratory Therapy Assessment DAILY RT 05/28/21 22:01 Completed Patient Care Notes (Last 24 hours) 05/29/21 11:02 Nursing Note by Pretty Teresa Attempted to dc O2 and sat dropped to 88%. O2 back on 2L NC and sats back up to 92-95% Initialized on 05/29/21 11:02 - END OF NOTE 05/29/21 09:40 Nursing Note by Pretty Teresa Patient was on 2L NC this am. O2 sat 92-98%. Took O2 off and rechecked sats - 88-89%. Back on 2L NC Sat 90-92% Initialized on 05/29/21 09:40 - END OF NOTE Code(s): E86.0 - DEHYDRATION (2) COVID-19 Current Visit: Yes Status: Acute Code(s): U07.1 - COVID-19
[2021-05-30] MEDS: Sodium Chloride 0.9% 1000 ML 1,000 ML IV SCH ×3 (03:32→23:14)
[2021-05-30] MEDS: TYLENOL 325 MG PO PRN (03:32)
[2021-05-30 05:27] LABS: Absolute Neutrophil Ct (ANC) 3.36 (1.4-6.9); Basophil (Absolute #) 0 (0-0.4); Eosinophil % 0.7 % (0.00-5.0); Eosinophil (Absolute #) 0.03 (0-0.5); Hematocrit 39.1 % (42-50); Hemoglobin 12.2 gm/dl (12.5-18.0); Lymphocyte (Absolute #) 0.53 (1.0-4.6); Lymphocytes % 12.2 % (24.0-44.0); Mean Cell Volume 88.3 fl (78-100); Mean Corpuscular Hemoglobin 27.5 pg (26-32); Mean Corpuscular Hgb Concent. 31.2 g/dl (32-36); Mean Platelet Volume 10.7 fl (7.5-11.0); Monocyte (Absolute #) 0.42 (0.0-1.3); Monocytes % 9.7 % (0.0-12.0); Neutrophil % 77.4 % (36.0-66.0); Platelet Count 118 K/mm3 (150-450); Red Blood Count 4.43 M/mm3 (4.1-5.6); Red Cell Distribution Width 14.6 % (11.5-14.0); White Blood Count 4.3 K/mm3 (4.0-10.5)
[2021-05-30 06:02] LABS: ALBUMIN 3.4 g/dL (3.5-5.0); ANION GAP 13.2 MEQ/L (5-15); BILIRUBIN,TOTAL 0.5 mg/dL (0.2-1.3); Calcium 7.9 mg/dL (8.4-10.2); Creatinine 1 1.35 mg/dL (0.66-1.25); EST GLOMERULAR FILTRATION RATE 58.3 ML/MIN; Potassium 4.1 mmol/L (3.5-5.1); Total Protein 6.5 g/dL (6.3-8.2)
[2021-05-30 06:39] LABS: Slide Review 1 YES
[2021-05-30] MEDS: Zestril 10 MG PO SCH (10:21)
[2021-05-30] MEDS: Zocor 10MG PO SCH (10:21)
[2021-05-30] MEDS: ENOXAPARIN SODIUM SQ SCH (10:22)
[2021-05-30] MEDS: Pepcid 20 MG VIAL IV SCH ×2 (10:22→21:39)
[2021-05-30] MEDS: ZYLOPRIM 300 MG PO SCH (10:22)
[2021-05-30] MEDS ORDERED: ROCEPHIN 1 Gm-D5w 50 ml Bag** 1 G/50 ML IVPB IV SCH (13:00)
[2021-05-30] MEDS ORDERED: Coreg 3.125 MG PO SCH (13:30)
[2021-05-30] MEDS: solu-MEDROL 40 MG IV SCH ×2 (13:30→21:38)
[2021-05-30] MEDS ORDERED: VENTOLIN COMMON CANISTER IH PRN (14:45)
[2021-05-30] MEDS ORDERED: REMDESIVIR 200 MG in Sodium Chloride 0.9% 250 ML 250 ML IV ONE (15:00)
--- NOTE | 2021-05-30 18:39 | PCM.NOTE ---
Date and Time: 05/30/211835 Subjective Assessment: still shortness of breath - Review of Systems Constitutional: No Fever, No Chills Eyes: No Symptoms Ears, Nose, & Throat: No Symptoms Respiratory: Cough, Orthopnea, Short Of Breath, Wheezing Cardiac: No Chest Pain, No Edema, No Syncope Abdominal/Gastrointestinal: No Abdominal Pain, No Nausea, No Vomiting, No Diarrhea Genitourinary Symptoms: No Dysuria Musculoskeletal: No Back Pain, No Neck Pain Skin: No Rash Neurological: No Dizziness, No Focal Weakness, No Sensory Changes Psychological: No Symptoms Endocrine: No Symptoms Hematologic/Lymphatic: No Symptoms Immunological/Allergic: No Symptoms Objective Exam General Appearance: moderate distress, alert Neurologic Exam: alert, oriented x 3, cooperative, sensation nml, No motor deficits Skin Exam: normal color, warm, dry Eye Exam: PERRL, EOMI, eyes nml inspection Ears, Nose, Throat Exam: normal ENT inspection, pharynx normal, moist mucous membranes Neck Exam: normal inspection, non-tender, supple, full range of motion Respiratory Exam: normal breath sounds, crackles/rales, rhonchi, wheezing, No respiratory distress Cardiovascular Exam: regular rate/rhythm, normal heart sounds Gastrointestinal/Abdomen Exam: soft, No tenderness, No mass Extremity Exam: normal inspection, normal range of motion Back Exam: normal inspection, normal range of motion, No CVA tenderness, No vertebral tenderness Male Genitalia Exam: deferred Rectal Exam: deferred OBJECTIVE DATA Vital Signs: Vital Signs - 24 hr Temp Pulse Resp BP Pulse Ox 05/30/21 18:00 22 05/30/21 17:53 68 20 94 L 05/30/21 16:00 99.2 F 103 H 22 140/85 94 L 05/30/21 14:00 22 05/30/21 13:43 96 H 16 93 L 05/30/21 12:00 20 05/30/21 11:59 99.1 F 92 H 23 154/90 91 L 05/30/21 10:00 18 05/30/21 09:53 91 H 19 97 05/30/21 08:00 18 05/30/21 07:40 98.4 F 81 18 159/102 95 05/30/21 07:08 95 05/30/21 06:00 77 18 94 L 05/30/21 04:00 96.8 F 88 18 173/95 95 05/30/21 01:59 72 18 98 05/30/21 00:00 96.8 F 85 20 174/97 97 05/29/21 22:00 86 94 L 05/29/21 20:00 97.9 F 90 25 H 153/94 96 05/29/21 19:54 94 L Pain Assessment - Last Documented Pain Intensity 0 Pain Scale Used FLACC Intake and Output: Intake & Output 05/28/21 05/29/21 05/30/21 05/31/21 11:59 11:59 11:59 11:59 Intake Total 2319 1968 1552 Balance 2319 1968 1552 Weight 82.5 kg 82.9 kg Lab Results: Lab Results-Last 24 Hours 05/30/21 05/30/21 Range/Units 04:59 04:59 WBC 4.3 (4.0-10.5) K/mm3 RBC 4.43 (4.1-5.6) M/mm3 Hgb 12.2 L (12.5-18.0) gm/dl Hct 39.1 L (42-50) % MCV 88.3 (78-100) fl MCH 27.5 (26-32) pg MCHC 31.2 L (32-36) g/dl RDW 14.6 H (11.5-14.0) % Plt Count 118 L (150-450) K/mm3 MPV 10.7 (7.5-11.0) fl Gran % 77.4 H (36.0-66.0) % Eos # (Auto) 0.03 (0-0.5) Absolute Lymphs (auto) 0.53 L (1.0-4.6) Absolute Monos (auto) 0.42 (0.0-1.3) Lymphocytes % 12.2 L (24.0-44.0) % Monocytes % 9.7 (0.0-12.0) % Eosinophils % 0.7 (0.00-5.0) % Basophils % 0.0 (0.0-0.4) % Absolute Granulocytes 3.36 (1.4-6.9) Basophils # 0 (0-0.4) Sodium 138 (137-145) mmol/L Potassium 4.1 (3.5-5.1) mmol/L Chloride 106 (98-107) mmol/L Carbon Dioxide 23 (22-30) mmol/L Anion Gap 13.2 (5-15) MEQ/L BUN 19 (9-20) mg/dL Creatinine 1.35 H (0.66-1.25) mg/dL Estimated GFR 58.3 ML/MIN Glucose 109 H (74-106) mg/dL Calcium 7.9 L (8.4-10.2) mg/dL Total Bilirubin 0.50 (0.2-1.3) mg/dL AST 33 (17-59) U/L ALT 15 (0-50) U/L Alkaline Phosphatase 71 (38-126) U/L Serum Total Protein 6.5 (6.3-8.2) g/dL Albumin 3.4 L (3.5-5.0) g/dL Slides for Path Review YES Assessment/Plan (1) Acute kidney injury due to COVID-19 Current Visit: Yes Status: Acute Assessment & Plan: Chief Complaint Diagnosis c/o flu like symptoms for 2-3 days Allergies Allergy/AdvReac Type Severity Reaction Status Date / Time No Known Drug Allergies Allergy Verified 05/28/21 16:20 Vital Signs (Last 24 hours) Temp Pulse Resp BP Pulse Ox 05/30/21 18:00 22 05/30/21 17:53 68 20 94 L 05/30/21 16:00 99.2 F 103 H 22 140/85 94 L 05/30/21 14:00 22 05/30/21 13:43 96 H 16 93 L 05/30/21 12:00 20 05/30/21 11:59 99.1 F 92 H 23 154/90 91 L 05/30/21 10:00 18 05/30/21 09:53 91 H 19 97 05/30/21 08:00 18 05/30/21 07:40 98.4 F 81 18 159/102 95 05/30/21 07:08 95 05/30/21 06:00 77 18 94 L 05/30/21 04:00 96.8 F 88 18 173/95 95 05/30/21 01:59 72 18 98 05/30/21 00:00 96.8 F 85 20 174/97 97 05/29/21 22:00 86 94 L 05/29/21 20:00 97.9 F 90 25 H 153/94 96 05/29/21 19:54 94 L Current Medications Generic Name Dose Route Start Last Admin Trade Name Freq PRN Reason Stop Dose Admin Acetaminophen 650 mg 05/28/21 19:59 05/30/21 03:32 Tylenol 325 Mg PO 06/27/21 19:58 650 mg Q4H PRN PRN Administration PAIN AND/OR FEVER Albuterol Sulfate 4 puff 05/30/21 14:45 05/30/21 15:59 Ventolin Common Canister IH 06/29/21 14:44 4 puff Q4H PRN PRN Administration SHORTNESS OF BREATH/WHEEZING Allopurinol 300 mg 05/29/21 10:00 05/30/21 10:22 Zyloprim 300 Mg PO 06/28/21 09:59 300 mg DAILY MICHAEL Administration Carvedilol 25 mg 05/30/21 22:00 Coreg 12.5 Mg PO 06/29/21 21:59 BID MICHAEL Enoxaparin Sodium 40 mg 05/29/21 10:00 05/30/21 10:22 Enoxaparin Sodium SQ 06/28/21 09:59 40 mg DAILY MICHAEL Administration Famotidine 20 mg 05/28/21 22:00 05/30/21 10:22 Pepcid 20 Mg Vial IV 06/27/21 21:59 20 mg Q12HT MICHAEL Administration Sodium Chloride 1,000 mls @ 125 mls/hr 05/28/21 19:59 05/30/21 11:48 Sodium Chloride 0.9% 1000 Ml IV 06/27/21 19:58 125 mls/hr .Q8H MICHAEL Administration Ceftriaxone Sodium/Dextrose 1 g in 50 mls @ 100 mls/hr 05/30/21 13:00 05/30/21 13:31 Rocephin 1 Gm-D5w 50 Ml Bag IV 06/02/21 12:59 100 mls/hr Q24H MICHAEL Administration Remdesivir 100 mg/ Sodium 100 mls @ 100 mls/hr 05/31/21 15:00 Chloride IV 06/03/21 15:59 Q24H MICHAEL Lisinopril 10 mg 05/29/21 10:00 05/30/21 10:21 Zestril 10 Mg PO 06/28/21 09:59 10 mg DAILY MICHAEL Administration Methylprednisolone Sodium Succinate 40 mg 05/30/21 13:00 05/30/21 13:30 Solu-Medrol 40 Mg IV 06/29/21 12:59 40 mg Q8H MICHAEL Administration Morphine Sulfate 2 mg 05/28/21 19:59 05/29/21 03:03 Morphine Sulfate 2 Mg Inj IV 06/02/21 19:58 2 mg Q4H PRN PRN Administration PAIN Morphine Sulfate 4 mg 05/28/21 19:59 Morphine Sulfate 4 Mg Inj IV 06/02/21 19:58 Q4H PRN PRN PAIN Ondansetron HCl 4 mg 05/29/21 03:15 05/29/21 03:17 Zofran 4 Mg/2 Ml Vial IV 06/28/21 03:14 4 mg Q4H PRN PRN Administration NAUSEA/VOMITING Simvastatin 10 mg 05/29/21 10:00 05/30/21 10:21 Zocor 10mg PO 06/28/21 09:59 10 mg DAILY MICHAEL Administration Discontinued Medications Generic Name Dose Route Start Last Admin Trade Name Freq PRN Reason Stop Dose Admin Carvedilol 25 mg 05/30/21 13:30 Coreg 3.125 Mg PO 06/29/21 13:29 BID MICHAEL Sodium Chloride 1,000 mls @ 999 mls/hr 05/28/21 16:32 05/28/21 17:37 Sodium Chloride 0.9% 1000 Ml IV 05/28/21 17:32 Infused .Q1H1M STA Infusion Sodium Chloride Confirm 05/28/21 16:34 Sodium Chloride 0.9% 1000 Ml Administered 05/28/21 16:35 Dose 1,000 mls @ ud .ROUTE .STK-MED ONE Remdesivir 200 mg/ Sodium 250 mls @ 125 mls/hr 05/30/21 15:00 05/30/21 14:55 Chloride IV 05/30/21 16:59 125 mls/hr ONCE ONE Administration Ondansetron HCl 4 mg 05/28/21 16:32 05/28/21 16:37 Zofran 4 Mg/2 Ml Vial IV 05/28/21 16:33 4 mg STAT ONE Administration Ondansetron HCl Confirm 05/28/21 16:34 Zofran 4 Mg/2 Ml Vial Administered 05/28/21 16:35 Dose 4 mg .ROUTE .STK-MED ONE Intake & Output (Last 24 hours) 05/28/21 05/29/21 05/30/21 05/31/21 11:59 11:59 11:59 11:59 Intake Total 2319 1968 1552 Balance 2319 1968 1552 Weight 82.5 kg 82.9 kg Microbiology Results (Last 24 hours) 05/28/21 17:41 Urine, Void Urine Culture - Final <10K NORMAL SKIN GARRETT PROBABLE SKIN CONTAMINANT 05/28/21 17:15 Blood Blood Culture Gram Stain - Pending 05/28/21 17:15 Blood Blood Culture - Preliminary NO GROWTH TO DATE 05/28/21 16:36 Blood Blood Culture Gram Stain - Pending 05/28/21 16:36 Blood Blood Culture - Preliminary NO GROWTH TO DATE Laboratory Results (Last 24 hours) 05/30/21 05/30/21 04:59 04:59 WBC 4.3 RBC 4.43 Hgb 12.2 L Hct 39.1 L MCV 88.3 MCH 27.5 MCHC 31.2 L RDW 14.6 H Plt Count 118 L MPV 10.7 Gran % 77.4 H Eos # (Auto) 0.03 Absolute Lymphs (auto) 0.53 L Absolute Monos (auto) 0.42 Lymphocytes % 12.2 L Monocytes % 9.7 Eosinophils % 0.7 Basophils % 0.0 Absolute Granulocytes 3.36 Basophils # 0 Sodium 138 Potassium 4.1 Chloride 106 Carbon Dioxide 23 Anion Gap 13.2 BUN 19 Creatinine 1.35 H Estimated GFR 58.3 Glucose 109 H Calcium 7.9 L Total Bilirubin 0.50 AST 33 ALT 15 Alkaline Phosphatase 71 Serum Total Protein 6.5 Albumin 3.4 L Slides for Path Review YES Orders (Last 24 hours) Category Date Time Status CBC W DIFF AM.LAB Lab 05/30/21 04:59 Completed CMP AM.LAB Lab 05/30/21 04:59 Completed PT INR [PROTIME WITH INR] AM.LAB Lab 06/01/21 04:00 Ordered PT INR [PROTIME WITH INR] AM.LAB Lab 06/02/21 04:00 Ordered Albuterol Common Canister [Ventolin Common Canister* Med 05/30/21 14:45 Active ] 4 puff IH Q4H PRN PRN Carvedilol 12.5 mg [Coreg 12.5 mg] Med 05/30/21 22:00 Active 25 mg PO BID Carvedilol 3.125 mg [Coreg 3.125 MG] Med 05/30/21 13:30 Discontinued 25 mg PO BID Ceftriaxone 1 GM/50 ML PREMIX* [ROCEPHIN 1 Gm-D5w 50 ml Med 05/30/21 13:00 Active Bag] 1 g in 50 ml IV Q24H Methylprednisolone Sod Suc 40M [solu-MEDROL 40 MG] Med 05/30/21 13:00 Active 40 mg IV Q8H Remdesivir 100 mg Med 05/31/21 15:00 Active NaCl 0.9% 100Ml [Sodium Chloride 0.9% 100 ML BAG] 100 ml IV Q24H Remdesivir 200 mg Med 05/30/21 15:00 Discontinued NaCl 0.9% 250 ml [Sodium Chloride 0.9% 250 ML] 250 ml IV ONCE Patient Care Notes (Last 24 hours) 05/30/21 11:55 Nursing Note by Shelly Knox Attempted to wean pt off of O2. Pt placed on 1L NC and was 95%, then placed pt on RA and O2 sat is 87-89%. pt placed back on 1L NC and is now 91%. Will continue to monitor. Initialized on 05/30/21 11:55 - END OF NOTE Code(s): U07.1 - COVID-19; N17.9 - ACUTE KIDNEY FAILURE, UNSPECIFIED (2) Dehydration Current Visit: Yes Status: Acute Code(s): E86.0 - DEHYDRATION (3) COVID-19 Current Visit: Yes Status: Acute Code(s): U07.1 - COVID-19
[2021-05-30] MEDS ORDERED: COREG 12.5 MG PO SCH (22:00)
[2021-05-31] MEDS: solu-MEDROL 40 MG IV SCH (05:21)
[2021-05-31] MEDS: Sodium Chloride 0.9% 1000 ML 1,000 ML IV SCH (05:21)
[2021-05-31 07:53] VITALS: BP 178/95; PULSE 71; O2SAT 91
[2021-05-31] MEDS ORDERED: REMDESIVIR 100 MG in Sodium Chloride 0.9% 100 ML BAG 100 ML IV SCH (15:00)
--- NOTE | 2021-05-31 20:10 | PCM.DS ---
Discharge Summary Date of Admission: 05/28/21 19:39 Admitting Physician: OSCAR BLANCHARD Primary Care Provider: CANDE BARBOSA Allergies Allergies No Known Drug Allergies Allergy (Verified 05/28/21 16:20) Hospital Summary - Hospital Course Hospital Course: Chief Complaint Diagnosis c/o flu like symptoms for 2-3 days Allergies Allergy/AdvReac Type Severity Reaction Status Date / Time No Known Drug Allergies Allergy Verified 05/28/21 16:20 Vital Signs (Last 24 hours) Temp Pulse Resp BP Pulse Ox 05/31/21 10:00 20 05/31/21 08:00 20 05/31/21 07:52 98.3 F 71 18 178/95 91 L 05/31/21 07:21 95 05/31/21 05:47 60 21 93 L 05/31/21 04:00 97.8 F 88 16 179/92 93 L 05/31/21 01:41 82 18 92 L 05/31/21 00:00 97.9 F 78 23 148/89 92 L 05/30/21 22:00 20 05/30/21 21:53 91 H 17 93 L 05/30/21 21:13 92 L Home Medications Medication Instructions Recorded Confirmed Last Taken Type Carvedilol 12.5 mg [Coreg 12.5 25 mg PO BID tablet 05/31/21 Unknown Rx mg] Current Medications Discontinued Medications Generic Name Dose Route Start Last Admin Trade Name Freq PRN Reason Stop Dose Admin Acetaminophen 650 mg 05/28/21 19:59 05/30/21 03:32 Tylenol 325 Mg PO 06/27/21 19:58 650 mg Q4H PRN PRN Administration PAIN AND/OR FEVER Albuterol Sulfate 4 puff 05/30/21 14:45 05/30/21 15:59 Ventolin Common Canister IH 06/29/21 14:44 4 puff Q4H PRN PRN Administration SHORTNESS OF BREATH/WHEEZING Allopurinol 300 mg 05/29/21 10:00 05/30/21 10:22 Zyloprim 300 Mg PO 06/28/21 09:59 300 mg DAILY MICHAEL Administration Carvedilol 25 mg 05/30/21 13:30 Coreg 3.125 Mg PO 06/29/21 13:29 BID MICHAEL Carvedilol 25 mg 05/30/21 22:00 05/30/21 21:38 Coreg 12.5 Mg PO 06/29/21 21:59 25 mg BID MICHAEL Administration Enoxaparin Sodium 40 mg 05/29/21 10:00 05/30/21 10:22 Enoxaparin Sodium SQ 06/28/21 09:59 40 mg DAILY MICHAEL Administration Famotidine 20 mg 05/28/21 22:00 05/30/21 21:39 Pepcid 20 Mg Vial IV 06/27/21 21:59 20 mg Q12HT MICHAEL Administration Sodium Chloride 1,000 mls @ 999 mls/hr 05/28/21 16:32 05/28/21 17:37 Sodium Chloride 0.9% 1000 Ml IV 05/28/21 17:32 Infused .Q1H1M STA Infusion Sodium Chloride Confirm 05/28/21 16:34 Sodium Chloride 0.9% 1000 Ml Administered 05/28/21 16:35 Dose 1,000 mls @ ud .ROUTE .STK-MED ONE Sodium Chloride 1,000 mls @ 125 mls/hr 05/28/21 19:59 05/31/21 05:21 Sodium Chloride 0.9% 1000 Ml IV 06/27/21 19:58 125 mls/hr .Q8H MICHAEL Administration Ceftriaxone Sodium/Dextrose 1 g in 50 mls @ 100 mls/hr 05/30/21 13:00 05/30/21 13:31 Rocephin 1 Gm-D5w 50 Ml Bag IV 06/02/21 12:59 100 mls/hr Q24H MICHAEL Administration Remdesivir 200 mg/ Sodium 250 mls @ 125 mls/hr 05/30/21 15:00 05/30/21 14:55 Chloride IV 05/30/21 16:59 125 mls/hr ONCE ONE Administration Remdesivir 100 mg/ Sodium 100 mls @ 100 mls/hr 05/31/21 15:00 Chloride IV 06/03/21 15:59 Q24H MICHAEL Lisinopril 10 mg 05/29/21 10:00 05/30/21 10:21 Zestril 10 Mg PO 06/28/21 09:59 10 mg DAILY MICHAEL Administration Methylprednisolone Sodium Succinate 40 mg 05/30/21 13:00 05/31/21 05:21 Solu-Medrol 40 Mg IV 06/29/21 12:59 40 mg Q8H MICHAEL Administration Morphine Sulfate 2 mg 05/28/21 19:59 05/29/21 03:03 Morphine Sulfate 2 Mg Inj IV 06/02/21 19:58 2 mg Q4H PRN PRN Administration PAIN Morphine Sulfate 4 mg 05/28/21 19:59 Morphine Sulfate 4 Mg Inj IV 06/02/21 19:58 Q4H PRN PRN PAIN Ondansetron HCl 4 mg 05/28/21 16:32 05/28/21 16:37 Zofran 4 Mg/2 Ml Vial IV 05/28/21 16:33 4 mg STAT ONE Administration Ondansetron HCl Confirm 05/28/21 16:34 Zofran 4 Mg/2 Ml Vial Administered 05/28/21 16:35 Dose 4 mg .ROUTE .STK-MED ONE Ondansetron HCl 4 mg 05/29/21 03:15 05/29/21 03:17 Zofran 4 Mg/2 Ml Vial IV 06/28/21 03:14 4 mg Q4H PRN PRN Administration NAUSEA/VOMITING Simvastatin 10 mg 05/29/21 10:00 05/30/21 10:21 Zocor 10mg PO 06/28/21 09:59 10 mg DAILY MICHAEL Administration Intake & Output (Last 24 hours) 05/29/21 05/30/21 05/31/21 06/01/21 11:59 11:59 11:59 11:59 Intake Total 2319 1968 4477 Balance 2319 1968 3335 Weight 82.5 kg 82.9 kg 82.7 kg Orders (Last 24 hours) Category Date Time Status Discharge Routine Discharge 05/31/21 Ordered Carvedilol 12.5 mg [Coreg 12.5 mg] Med 05/30/21 22:00 Discontinued 25 mg PO BID Remdesivir 100 mg Med 05/31/21 15:00 Discontinued NaCl 0.9% 100Ml [Sodium Chloride 0.9% 100 ML BAG] 100 ml IV Q24H Patient Care Notes (Last 24 hours) 05/31/21 10:27 Case Management Note by Rosa Maria Olmos S/W PATIENT- HE CONTINUES TO DENY ANY NEW NEEDS REGARDING DC AT THIS TIME. PATIENT SET UP WITH HOME OXYGEN. PRIMARY RN GIVEN PULSE OX TO GIVE TO PATIENT TO MONITOR OXYGEN SATS AT HOME. PATIENT GIVEN INSTRUCTIONS AND OXYGEN LOG WELL. S/[facility]- THEY RECEIVED ORDER AND OKAYED PATIENT TO GO AHEAD AND DC HOME. WILL GIVE PATIENT PORTABLE TANK FROM RT Initialized on 05/31/21 10:27 - END OF NOTE 05/31/21 09:56 Nursing Note by Shelly Knox pt provided with SpO2 and taught how to use. pt provided portable oxygen tank and educated on how to use it. Initialized on 05/31/21 09:56 - END OF NOTE 05/31/21 09:18 Case Management Note by Rosa Maria Olmos OXYGEN ORDER FOR 1L/NC SUBMITTED TO [facility] THRU [place] AT THIS TIME Initialized on 05/31/21 09:18 - END OF NOTE 05/31/21 08:53 SENIOR BOOKKEEPER Note by Nancy Maldonado took patient off of oxygen patient dropped to 86% on room air at rest put back on 1l L%up to 92 Initialized on 05/31/21 08:53 - END OF NOTE - Vitals & Intake/Output Vital Signs: Vital Signs Temperature 98.3 F 05/31/21 07:52 Pulse Rate 71 05/31/21 07:52 Respiratory Rate 20 05/31/21 10:00 Blood Pressure 178/95 05/31/21 07:52 O2 Sat by Pulse Oximetry 91 L 05/31/21 07:52 Intake & Output: Intake & Output 05/29/21 05/30/21 05/31/21 06/01/21 11:59 11:59 11:59 11:59 Intake Total 2320 1968 3335 Balance 2321968 333 Weight 82.5 kg 82.9 kg 82.7 kg - Lab Result Diagrams: 05/30/21 04:59 05/30/21 04:59 Micro Results-Entire Visit: Microbiology 05/28/21 17:41 Urine Culture - Final Urine, Void <10K NORMAL SKIN GARRETT PROBABLE SKIN CONTAMINANT 05/28/21 17:15 Blood Culture - Preliminary Blood NO GROWTH TO DATE 05/28/21 16:36 Blood Culture - Preliminary Blood NO GROWTH TO DATE - Procedures and Test Procedures and Tests throughout Hospitalization: Therapy Orders & Screens 05/28/21 22:00 Oxygen NASAL CANNULA 2 lpm Comment: Diagnosis: covid/acute renal failure 05/28/21 22:01 Respiratory Therapy Assessment DAILY Comment: Diagnosis: covid/acute renal failure Discharge Exam General Appearance: no apparent distress, alert Neurologic Exam: alert, oriented x 3, cooperative, normal mood/affect, nml cerebellar function, sensation nml, No motor deficits Eye Exam: PERRL, EOMI, eyes nml inspection Ears, Nose, Throat Exam: normal ENT inspection, pharynx normal, moist mucous membranes Neck Exam: normal inspection, non-tender, supple, full range of motion Respiratory Exam: normal breath sounds, lungs clear, No respiratory distress Cardiovascular Exam: regular rate/rhythm, normal heart sounds Gastrointestinal/Abdomen Exam: soft, No tenderness, No mass Male Genitalia Exam: deferred Rectal Exam: deferred Back Exam: normal inspection, normal range of motion, No CVA tenderness, No vertebral tenderness Extremity Exam: normal inspection, normal range of motion Skin Exam: normal color, warm, dry Final Diagnosis/Problem List - Final Discharge Diagnosis/Problem (1) Acute kidney injury due to COVID-19 Status: Resolved Code(s): U07.1 - COVID-19; N17.9 - ACUTE KIDNEY FAILURE, UNSPECIFIED (2) Dehydration Status: Resolved Code(s): E86.0 - DEHYDRATION (3) COVID-19 Status: Acute Code(s): U07.1 - COVID-19 - Discharge Discharge Date: 05/31/21 Disposition: Home, Self-Care Condition: Stable Prescriptions: New Carvedilol 12.5 mg [Coreg 12.5 mg] 25 mg PO BID tablet Continue Lisinopril 10 mg [Zestril 10 MG] 10 mg PO DAILY Atorvastatin Calcium [Lipitor] 10 mg PO DAILY Allopurinol 300 mg PO DAILY Instructions: Oxygen Therapy, Adult (DC), Coronavirus Disease 2019 (COVID-19) (DC) Additional Instructions: Wear 1L per nasal cannula 13/05. Call [facility] at [phone] when you get home so they can deliver your home oxygen concentrator Follow up with: CANDE BARBOSA [Primary Care Provider] - 06/15/21 9:30 am Forms: Discharge Instructions
== END 2021-05-31 10:15 | disposition home or self-care (01) ==
LOC: ED 16:04 → MED SURG 19:39
PROVIDERS: ADMIT General Practice; ATTEND General Practice
DX: U07.1 COVID-19 (principal); N17.9 Acute kidney failure, unspecified; E86.0 Dehydration; R05 Cough; I10 Essential (primary) hypertension; E78.5 Hyperlipidemia, unspecified; R53.83 Other fatigue; R07.9 Chest pain, unspecified; R51.9 Headache, unspecified; Z79.899 Other long term (current) drug therapy; R42 Dizziness and giddiness; Z20.822 Contact with and (suspected) exposure to COVID-19
CPT/HCPCS: 36000; 36415; 71045; 80048; 80053; 81001; 83605; 83690; 83735; 85025; 87040; 87086; 93268; 94640; 94762; 96374; 99285; G0378; U0003; J0696; J1650; J2270; J2405; J2920; A9270-GY

== ENCOUNTER 2021-12-28 15:50 | Emergency (ER) | payer OTHER ==
--- NOTE | 2021-12-28 15:52 | ERPHSYRPT ---
- History of Present Illness Time Seen by Provider: 12/28/21 15:52 Source: patient Exam Limitations: no limitations Physician History: This is a 56-year-old right-handed white male patient of Dr. Hdz who also sees a welt sole layer for his gout and arthritis. He has been worked up for rheumatoid arthritis at this time. Patient has had worsening left hand and left shoulder pain over the last several days. They have placed the patient on prednisone and increase the dose. However the pain in the left shoulder and left hand have not significantly improved. Patient has a history of hypertension, gout, arthritis, renal disease and elevated cholesterol. His blo od pressure is higher than typical. Patient denies chest pain. He denies shortness of breath. Patient has not suffered any acute traumatic fall or injury. Occurred: days ago (Several) Method of Injury: other (No injury) Quality: aching, throbbing Severity of Pain-Max: moderate Severity of Pain-Current: moderate Extremities Pain Location: shoulder: left, hand: left Modifying Factors: Improves With: movement Associated Symptoms: none Allergies/Adverse Reactions: No Known Drug Allergies Allergy (Verified 12/28/21 16:11) Home Medications: Atorvastatin Calcium [Lipitor] 10 mg PO DAILY 12/25/20 [History] Lisinopril 10 mg [Zestril 10 MG] 10 mg PO DAILY 12/25/20 [History] allopurinoL [Allopurinol] 300 mg PO DAILY 12/25/20 [History] Prednisone 10 mg [Deltasone 10 mg] 1 ea DAILY 12/28/21 [History] Hx Tetanus, Diphtheria Vaccination/Date Given: Yes Hx Influenza Vaccination/Date Given: No Hx Pneumococcal Vaccination/Date Given: No Travel Risk - International Travel Have you traveled outside of the country in past 3 weeks: No - Coronavirus Screening Are you exhibiting any of the following symptoms?: No Close contact with a COVID-19 positive Pt in past 14-21 Days: No - Vaccine Status Have you recieved a Covid-19 vaccination: No - Review of Systems Constitutional: No Symptoms Eyes: No Symptoms Ears, Nose, & Throat: No Symptoms Respiratory: No Symptoms Cardiac: No Symptoms Abdominal/Gastrointestinal: No Symptoms Genitourinary Symptoms: No Symptoms Musculoskeletal: Joint Pain (Left shoulder and left hand pain), No Deformity, No Fall, No Injury Skin: Other (Redness of the skin of left hand.) Neurological: No Symptoms Psychological: No Symptoms Endocrine: No Symptoms Hematologic/Lymphatic: No Symptoms Immunological/Allergic: No Symptoms - Past Medical History Pertinent Past Medical History: Yes Neurological History: No Pertinent History ENT History: No Pertinent History Cardiac History: High Cholesterol, Hypertension Respiratory History: No Pertinent History Endocrine Medical History: No Pertinent History Musculoskeletal History: Other GI Medical History: No Pertinent History History: Renal Disease Psycho-Social History: No Pertinent History Male Reproductive Disorders: No Pertinent History Other Medical History: gout - Past Surgical History Past Surgical History: Yes Neuro Surgical History: No Pertinent History Cardiac: No Pertinent History Respiratory: No Pertinent History Gastrointestinal: No Pertinent History Genitourinary: Other Musculoskeletal: No Pertinent History Male Surgical History: No Pertinent History Other Surgical History: hernia. left lower leg - Social History Smoking Status: Never smoker Exposure to second hand smoke: No Drug Use: none Patient Lives Alone: No - Nursing Vital Signs Nursing Vital Signs: Initial Vital Signs Temperature 97.2 F 12/28/21 16:03 Pulse Rate 95 H 12/28/21 16:03 Respiratory Rate 18 12/28/21 16:03 Blood Pressure 185/134 12/28/21 16:03 O2 Sat by Pulse Oximetry 98 12/28/21 16:03 Pain Scale Pain Intensity 4 - Physical Exam General Appearance: no apparent distress, alert, anxiety Eyes, Ears, Nose, Throat Exam: normal ENT inspection, moist mucous membranes Neck Exam: normal inspection, non-tender, supple, full range of motion Cardiovascular/Respiratory Exam: chest non-tender, no respiratory distress Abdominal Exam: non-tender Back Exam: normal inspection, normal range of motion, No CVA tenderness, No vertebral tenderness Shoulder Exam: normal inspection, no evidence of injury, normal ROM Elbow/Forearm Exam: normal inspection, non-tender, no evidence of injury, normal ROM Wrist Exam: normal inspection, non-tender, no evidence of injury, normal ROM Hand Exam: no evidence of injury, normal ROM, soft tissue tenderness (Redness of the skin of left hand) Neuro/Tendon Exam: normal sensation, normal motor functions, normal tendon functions, responds to pain, no evidence tendon injury Mental Status Exam: alert, oriented x 3, cooperative Skin Exam: other (Redness of the skin of left hand but not consistent with cellulitis) SpO2 Interpretation: normal O2 Delivery: Room Air - Course Nursing assessment & vital signs reviewed: Yes Ordered Tests: Active Orders 24 hr Category Date Time Status IV Insertion STAT Care 12/28/21 16:13 Active CBC W DIFF Stat Lab 12/28/21 16:13 Completed CMP Stat Lab 12/28/21 17:10 Completed Uric Acid Stat Lab 12/28/21 16:14 Completed Medication Summary Discontinued Medications Generic Name Dose Route Start Last Admin Trade Name Freq PRN Reason Stop Dose Admin Enalaprilat 1.25 mg 12/28/21 16:15 Enalaprilat 2.5 Mg Injection IV 12/28/21 16:16 STAT ONE Hydromorphone HCl 1 mg 12/28/21 16:14 12/28/21 16:50 Hydromorphone 1 Mg/1ml Inj 1 Mg/Ml Syringe IV 12/28/21 16:15 1 mg STAT ONE Administration Hydromorphone HCl Confirm 12/28/21 16:45 Hydromorphone 1 Mg/1ml Inj 1 Mg/Ml Syringe Administered 12/28/21 16:46 Dose 1 mg .ROUTE .STK-MED ONE Ondansetron HCl 4 mg 12/28/21 16:14 12/28/21 16:48 Ondansetron Hcl 4 Mg/2 Ml Vial IV 12/28/21 16:15 4 mg STAT ONE Administration Ondansetron HCl Confirm 12/28/21 16:44 Ondansetron Hcl 4 Mg/2 Ml Vial Administered 12/28/21 16:45 Dose 4 mg .ROUTE .STK-MED ONE Lab/Rad Data: Laboratory Result Diagrams 12/28/21 16:13 12/28/21 17:10 Laboratory Results 12/28/21 12/28/21 12/28/21 Range/Units 17:10 16:14 16:13 WBC 8.8 (4.0-10.5) K/mm3 RBC 4.91 (4.1-5.6) M/mm3 Hgb 14.1 (12.5-18.0) gm/dl Hct 43.9 (42-50) % MCV 89.4 (78-100) fl MCH 28.7 (26-32) pg MCHC 32.1 (32-36) g/dl RDW 16.0 H (11.5-14.0) % Plt Count 262 (150-450) K/mm3 MPV 10.0 (7.5-11.0) fl Gran % 65.3 (36.0-66.0) % Eos # (Auto) 0.23 (0-0.5) Absolute Lymphs (auto) 1.89 (1.0-4.6) Absolute Monos (auto) 0.88 (0.0-1.3) Lymphocytes % 21.5 L (24.0-44.0) % Monocytes % 10.0 (0.0-12.0) % Eosinophils % 2.6 (0.00-5.0) % Basophils % 0.6 (0.0-0.4) % Absolute Granulocytes 5.75 (1.4-6.9) Basophils # 0.05 (0-0.4) Sodium 141 (137-145) mmol/L Potassium 4.8 (3.5-5.1) mmol/L Chloride 108 H (98-107) mmol/L Carbon Dioxide 21 L (22-30) mmol/L Anion Gap 17.4 H (5-15) MEQ/L BUN 39 H (9-20) mg/dL Creatinine 2.14 H (0.66-1.25) mg/dL Estimated GFR 34.1 ML/MIN Glucose 100 (74-106) mg/dL Uric Acid 11.2 H (3.5-7.2) mg/dL Calcium 9.0 (8.4-10.2) mg/dL Total Bilirubin 1.50 H (0.2-1.3) mg/dL AST 29 (17-59) U/L ALT 19 (0-50) U/L Alkaline Phosphatase 98 (38-126) U/L Serum Total Protein 7.5 (6.3-8.2) g/dL Albumin 4.4 (3.5-5.0) g/dL - Progress Progress: improved, pain not gone completely, re-examined Progress Note: 12/28/21 17:36 Medical decision making: This patient had a uric acid is elevated at 11.2. He also has a sedimentation rate of 15. The patient's pain is not controlled well. Patient has hypertension and I believe that the steroids are contributing to the elevated hypertension. My plan is to have him stop the steroids until he discusses the issue with Dr. Hdz, his primary care physician. I will give him a single dose of colchicine orally today. He is to talk to Dr. Hdz about continuing that medication. The patient's creatinine clearance is greater than 30. So I will give him 0.6 mg orally x1 dose only. We will also prescribe him narcotics which I will send to the pharmacy for him to take for short-term pain relief. Counseled pt/family regarding: lab results, diagnosis, need for follow-up - Departure Departure Disposition: Home Clinical Impression: Acute gout Condition: Fair Critical Care Time: No Referrals: CANDE HDZ [Primary Care Provider] - Follow up/PCP as directed Additional Instructions: Drink plenty fluids. Stop your prednisone until you speak with Dr. Hdz tomorrow. Follow his directions for continued use of prednisone and colchicine. Take your other medications as prescribed. Call your welt sole layer tomorrow to make arrange for follow-up appointment. Prescriptions: Oxycodone HCl/Acetaminophen [Percocet 5-325 mg Tablet] 1 each PO Q8H PRN PRN #6 tablet MDD 3 PRN Reason: Moderate To Severe Pain
[2021-12-28] MEDS ORDERED: Zofran 4 MG/2 ML VIAL IV ONE (16:14)
[2021-12-28] MEDS ORDERED: Hydromorphone 1 mg/ml Injection IV ONE (16:14)
[2021-12-28] MEDS ORDERED: VASOTEC I.V. 2.5 MG IV ONE ×2 (16:15→17:49)
[2021-12-28] MEDS ORDERED: Zofran 4 MG/2 ML VIAL ONE (16:44)
[2021-12-28] MEDS ORDERED: Hydromorphone 1 mg/ml Injection ONE (16:45)
[2021-12-28 16:52] LABS: Absolute Neutrophil Ct (ANC) 5.75 (1.4-6.9); Basophil (Absolute #) 0.05 (0-0.4); Eosinophil % 2.6 % (0.00-5.0); Eosinophil (Absolute #) 0.23 (0-0.5); Hematocrit 43.9 % (42-50); Hemoglobin 14.1 gm/dl (12.5-18.0); Lymphocyte (Absolute #) 1.89 (1.0-4.6); Lymphocytes % 21.5 % (24.0-44.0); Mean Cell Volume 89.4 fl (78-100); Mean Corpuscular Hemoglobin 28.7 pg (26-32); Mean Corpuscular Hgb Concent. 32.1 g/dl (32-36); Monocyte (Absolute #) 0.88 (0.0-1.3); Neutrophil % 65.3 % (36.0-66.0); Platelet Count 262 K/mm3 (150-450); Red Blood Count 4.91 M/mm3 (4.1-5.6); White Blood Count 8.8 K/mm3 (4.0-10.5)
[2021-12-28 17:25] LABS: ALBUMIN 4.4 g/dL (3.5-5.0); ANION GAP 17.4 MEQ/L (5-15); BILIRUBIN,TOTAL 1.5 mg/dL (0.2-1.3); Creatinine 1 2.14 mg/dL (0.66-1.25); EST GLOMERULAR FILTRATION RATE 34.1 ML/MIN; Potassium 4.8 mmol/L (3.5-5.1); Total Protein 7.5 g/dL (6.3-8.2)
[2021-12-28 17:52] VITALS: BP 166/104; PULSE 83; O2SAT 96
== END 2021-12-28 18:44 | disposition home or self-care (01) ==
LOC: ED 15:50
DX: M10.9 Gout, unspecified (principal); M79.642 Pain in left hand; M25.512 Pain in left shoulder; I10 Essential (primary) hypertension; E78.5 Hyperlipidemia, unspecified; Z79.891 Long term (current) use of opiate analgesic; Z79.899 Other long term (current) drug therapy
CPT/HCPCS: 36415; 80053; 84550; 85025; 96374; 96375; 99284; J1170; J2405